=== PATIENT | female | born 1935 | race African-American/Black ===

== ENCOUNTER → 2017-03-01 | Outpatient (CLI) | payer MEDICARE, BC ==
[~2017-03-01] MED LIST: ACET-3161 PO; BIFI4CAP PO; CHOL100026 PO; HUM10VIA6 SQ; INSLAN SQ; LISI-604 PO; LOSA100T3 PO; METF10002 PO; NIFE90TA2 PO; ROSU10TA PO; TRAV2.5D EACHEYE; TRIA1CAP PO; UBID50TA3 PO
== END | disposition home or self-care (01) ==
LOC: PF 13:14
PROVIDERS: ATTEND Specialist
DX: I27.2 Other secondary pulmonary hypertension (principal); J44.9 Chronic obstructive pulmonary disease, unspecified; Z86.79 Personal history of other diseases of the circulatory system
CPT/HCPCS: 94060; 94727; 94729

== ENCOUNTER → 2017-08-30 | Outpatient (CLI) | payer MEDICARE, BC ==
[~2017-08-30] MED LIST changes: -CHOL100026 PO; +CHOL100044 PO
== END | disposition home or self-care (01) ==
LOC: CT 12:14
PROVIDERS: ATTEND Internal Medicine Nephrology
DX: K57.90 Diverticulosis of intestine, part unspecified, without perforation or abscess without bleeding (principal)
CPT/HCPCS: 74176

== ENCOUNTER 2017-12-18 19:21 | Inpatient (IN) | payer MEDICARE, BC ==
[~2017-12-18] VITALS: Ht 167.6 cm; Wt 79.8 kg
[2017-12-18] MEDS ORDERED: ASPIRIN 81MG TABLET PO ONE (20:30)
[2017-12-18] MEDS ORDERED: NITROGLYCERIN OINT 1GM/INCH UDPKT TD ONE (20:30)
[2017-12-18] MEDS ORDERED: NITROGLYCERIN 0.4MG TABLET SL SL PRN (20:30)
[2017-12-18] MEDS ORDERED: FUROSEMIDE 40MG/4ML VIAL IV ONE (20:30)
[2017-12-18 20:46] LABS: HEMATOCRIT. 33.5 % (36.0-48.0); HEMOGLOBIN. 10.8 g/dL (12.0-16.0); MEAN CORPUSCULAR HEMOGLOBIN 24.8 pg (28.0-32.0); MEAN CORPUSCULAR VOLUME 76.9 fL (81.0-99.0); MEAN PLATELET VOLUME 8.2 fl (7.4-10.4); PLATELET 291 x1000/uL (130-400); RED BLOOD CELL COUNT 4.36 mill/uL (4.2-5.4); RED CELL DISTRIBUTION WIDTH 15.4 % (11.6-14.6)
[2017-12-18 20:49] LABS: CHLORIDE 94 mEq/L (98-107)
[2017-12-18 20:51] LABS: INR 1.1; PROTHROMBIN TIME 11.6 sec (9.4-11.6)
[2017-12-18 21:18] LABS: PLATELET ESTIMATE NORMAL
[2017-12-19] MEDS ORDERED: RIVA20TA PO (09:24)
[2017-12-19] MEDS ORDERED: DYZ GT (09:24)
[2017-12-19] MEDS ORDERED: NIFEDIPINE XL 90MG TAB PO SCH (09:45)
[2017-12-19] MEDS ORDERED: ACETAMINOPHEN WITH CODEINE 300/30MG TABLET PO PRN (09:45)
[2017-12-19] MEDS: LOSARTAN POTASSIUM 100 MG TABLET PO SCH (10:10)
[2017-12-19] MEDS: CHOLECALCIFEROL (D3) 1000 UNIT TABLET PO SCH (10:10)
[2017-12-19] MEDS: LISINOPRIL 20MG TABLET PO SCH ×2 (10:10→21:37)
[2017-12-19] MEDS ORDERED: DEXTROSE 50% WATER 50ML SYRINGE IV PRN (10:15)
[2017-12-19] MEDS ORDERED: CLONIDINE 0.1MG TABLET PO PRN (10:15)
[2017-12-19 10:29] VITALS: BP 180/75
[2017-12-19] MEDS ORDERED: LEVOFLOXACIN 500MG PREMIX 100 ML IV SCH ×2 (11:00→13:00)
[2017-12-19] MEDS: BLOOD SUGAR DIAGNOSTIC STRIP TEST SCH ×3 (11:45→21:36)
[2017-12-19 11:59] VITALS: BP 139/60
[2017-12-19] MEDS ORDERED: INSULIN LISPRO 100 UNITS/ML SUBCUT SCH (12:15)
[2017-12-19] MEDS ORDERED: INSULIN LISPRO 100 UNITS/ML SUBCUT NR (12:39)
[2017-12-19] MEDS: INSULIN LISPRO 100 UNITS/ML SUBCUT SCH ×3 (12:57→21:00)
[2017-12-19 16:00] VITALS: BP 133/61
[2017-12-19] MEDS: METFORMIN HCL 500MG TABLET PO SCH (16:54)
[2017-12-19] MEDS: RIVAROXABAN 20 MG TABLET PO SCH (16:54)
[2017-12-19] MEDS ORDERED: MEDICATION NOT ON FORMULARY EA (Travoprost (Travatan Z) 1 DROP) EACHEYE SCH (17:00)
[2017-12-19 17:33] LABS: CLARITY URINE CLEAR (CLEAR); COLOR URINE YELLOW (YELLOW); KETONES URINE NEGATIVE (NEGATIVE); LEUKOCYTE ESTERASE URINE NEGATIVE (NEGATIVE); NITRITE URINE NEGATIVE (NEGATIVE); OCCULT BLOOD URINE NEGATIVE (NEGATIVE); PROTEIN URINE 3+ (NEGATIVE); SPECIFIC GRAVITY URINE 1.014 (1.005-1.030); UROBILINOGEN URINE 0.2 E.U./dL (0.2-1.0)
[2017-12-19 20:00] VITALS: BP 152/60
[2017-12-19] MEDS: LATANOPROST 0.005% OPHTH DROPS 2.5ML BOTHEYE SCH ×2 (21:00→21:36)
[2017-12-19] MEDS: INSULIN GLARGINE UD 100 UNITS/ML SYR SUBCUT SCH (22:50)
[2017-12-20] VITALS: BP 129/63
[2017-12-20] MEDS: BLOOD SUGAR DIAGNOSTIC STRIP TEST SCH ×4 (06:40→21:00)
[2017-12-20] MEDS: INSULIN LISPRO 100 UNITS/ML SUBCUT SCH ×4 (06:40→21:00)
[2017-12-20 07:27] LABS: BASOPHILS % 0.6 % (0.0-2.0); EOSINOPHILS % 4.9 % (0.0-5.0); HEMATOCRIT. 30.3 % (36.0-48.0); HEMOGLOBIN. 10.1 g/dL (12.0-16.0); LYMPHOCYTES % 15.2 % (20.0-50.0); MEAN CORPUSCULAR HEMOGLOBIN 25.2 pg (28.0-32.0); MEAN CORPUSCULAR VOLUME 75.6 fL (81.0-99.0); MEAN PLATELET VOLUME 8.2 fl (7.4-10.4); MONOCYTES % 14.4 % (2.0-8.0); NEUTROPHILS % 64.9 % (40.0-76.0); PLATELET 317 x1000/uL (130-400); RED BLOOD CELL COUNT 4.01 mill/uL (4.2-5.4); RED CELL DISTRIBUTION WIDTH 15.7 % (11.6-14.6)
[2017-12-20 07:56] LABS: CHLORIDE 100 mEq/L (98-107)
[2017-12-20 08:00] VITALS: BP 160/71
[2017-12-20] MEDS ORDERED: UBIDECARENONE 400 MG PO SCH (09:00)
[2017-12-20] MEDS ORDERED: POTASSIUM CHLORIDE 10MEQ TABLET SR PO NR (09:15)
[2017-12-20] MEDS: METFORMIN HCL 500MG TABLET PO SCH ×2 (09:53→17:54)
[2017-12-20] MEDS: LOSARTAN POTASSIUM 100 MG TABLET PO SCH (09:53)
[2017-12-20] MEDS: LISINOPRIL 20MG TABLET PO SCH ×2 (09:53→22:03)
[2017-12-20] MEDS: AMLODIPINE 5MG TABLET PO SCH (09:53)
[2017-12-20] MEDS: CHOLECALCIFEROL (D3) 1000 UNIT TABLET PO SCH (09:53)
[2017-12-20] MEDS: FUROSEMIDE 40MG/4ML VIAL IVP SCH (09:54)
[2017-12-20] MEDS ORDERED: LEVOFLOXACIN 250MG PREMIX 50 ML IV SCH (11:00)
[2017-12-20 12:00] VITALS: BP 149/59
[2017-12-20 17:08] VITALS: BP 152/64
[2017-12-20] MEDS: RIVAROXABAN 20 MG TABLET PO SCH (17:54)
[2017-12-20 20:00] VITALS: BP 170/69
[2017-12-20] MEDS: LATANOPROST 0.005% OPHTH DROPS 2.5ML BOTHEYE SCH (21:00)
[2017-12-20] MEDS: INSULIN GLARGINE UD 100 UNITS/ML SYR SUBCUT SCH (22:04)
[2017-12-21] VITALS: BP 143/67
[2017-12-21 04:00] VITALS: BP 155/65
[2017-12-21] MEDS: BLOOD SUGAR DIAGNOSTIC STRIP TEST SCH ×2 (07:12→11:34)
[2017-12-21] MEDS: INSULIN LISPRO 100 UNITS/ML SUBCUT SCH ×2 (07:13→12:15)
[2017-12-21 07:26] LABS: BASOPHILS % 0.5 % (0.0-2.0); EOSINOPHILS % 5.6 % (0.0-5.0); HEMATOCRIT. 31.5 % (36.0-48.0); HEMOGLOBIN. 10.5 g/dL (12.0-16.0); LYMPHOCYTES % 15.6 % (20.0-50.0); MEAN CORPUSCULAR VOLUME 75.4 fL (81.0-99.0); MEAN PLATELET VOLUME 8.2 fl (7.4-10.4); MONOCYTES % 14.6 % (2.0-8.0); NEUTROPHILS % 63.7 % (40.0-76.0); PLATELET 340 x1000/uL (130-400); RED BLOOD CELL COUNT 4.18 mill/uL (4.2-5.4); RED CELL DISTRIBUTION WIDTH 15.4 % (11.6-14.6)
[2017-12-21 08:00] VITALS: BP 147/60
[2017-12-21 08:18] LABS: CHLORIDE 100 mEq/L (98-107)
[2017-12-21] MEDS: METFORMIN HCL 500MG TABLET PO SCH (08:31)
[2017-12-21] MEDS: FUROSEMIDE 40MG/4ML VIAL IVP SCH (08:31)
[2017-12-21] MEDS: CHOLECALCIFEROL (D3) 1000 UNIT TABLET PO SCH (08:31)
[2017-12-21] MEDS: LOSARTAN POTASSIUM 100 MG TABLET PO SCH (08:31)
[2017-12-21] MEDS: LISINOPRIL 20MG TABLET PO SCH (08:32)
[2017-12-21] MEDS: AMLODIPINE 5MG TABLET PO SCH (08:43)
[2017-12-21] MEDS ORDERED: POTASSIUM CHLORIDE 10MEQ TABLET SR PO SCH (09:00)
[2017-12-21 12:08] VITALS: BP 136/78
== END 2017-12-21 13:20 | disposition home or self-care (01) | DRG 194 ==
LOC: ER 19:21 → ENRESERV 12-19 06:31 → 5WST 12-19 08:20 → EDBEDREQ 12-19 08:20 → EDBEDREQTM 12-19 08:27 → EDBEDREQ 12-19 08:47
PROVIDERS: ADMIT Internal Medicine Nephrology; ATTEND Internal Medicine Nephrology
DX: J18.9 Pneumonia, unspecified organism (principal); E87.1 Hypo-osmolality and hyponatremia; E11.65 Type 2 diabetes mellitus with hyperglycemia; E11.21 Type 2 diabetes mellitus with diabetic nephropathy; I48.1 Persistent atrial fibrillation; E87.8 Other disorders of electrolyte and fluid balance, not elsewhere classified; E88.09 Other disorders of plasma-protein metabolism, not elsewhere classified; I27.20 Pulmonary hypertension, unspecified; I49.5 Sick sinus syndrome; R80.9 Proteinuria, unspecified; E78.5 Hyperlipidemia, unspecified; I35.1 Nonrheumatic aortic (valve) insufficiency; I44.7 Left bundle-branch block, unspecified; J06.9 Acute upper respiratory infection, unspecified; Z79.01 Long term (current) use of anticoagulants; Z79.899 Other long term (current) drug therapy; Z87.891 Personal history of nicotine dependence; Z95.0 Presence of cardiac pacemaker; Z88.0 Allergy status to penicillin; Z79.4 Long term (current) use of insulin; I10 Essential (primary) hypertension
CPT/HCPCS: 36415; 70486; 71045; 80048; 80053; 81003; 82962; 83520; 83880; 84484; 85025; 85610; 85651; 86140; 86256; 93005; 96374; 99285; J1815; J1940; J1956; J7050

== ENCOUNTER 2018-10-12 18:44 | Inpatient (IN) | payer MEDICARE, BC ==
[~2018-10-12] VITALS: Ht 167.6 cm; Wt 77.6 kg
[~2018-10-12 18:44] MED LIST changes: +DYZ GT; +METF-416 PO; -METF10002 PO; +RIVA20TA PO
[2018-10-12 20:06] LABS: CLARITY URINE CLEAR (CLEAR); COLOR URINE YELLOW (YELLOW); KETONES URINE NEGATIVE (NEGATIVE); LEUKOCYTE ESTERASE URINE NEGATIVE (NEGATIVE); NITRITE URINE NEGATIVE (NEGATIVE); OCCULT BLOOD URINE NEGATIVE (NEGATIVE); PH URINE 6.5 (4.5-8.0); PROTEIN URINE 1+ (NEGATIVE); SPECIFIC GRAVITY URINE 1.008 (1.005-1.030); UROBILINOGEN URINE 0.2 E.U./dL (0.2-1.0)
[2018-10-12 20:22] LABS: CHLORIDE 100 mEq/L (98-107)
[2018-10-12 20:24] LABS: INR 1.1; PROTHROMBIN TIME 10.7 sec (9.1-11.1)
[2018-10-12 20:31] LABS: BASOPHILS % 0.4 % (0.0-2.0); EOSINOPHILS % 0.8 % (0.0-5.0); HEMATOCRIT. 36.1 % (36.0-48.0); HEMOGLOBIN. 11.9 g/dL (12.0-16.0); MEAN CORPUSCULAR HEMOGLOBIN 26.4 pg (28.0-32.0); MEAN CORPUSCULAR VOLUME 79.8 fL (81.0-99.0); MEAN PLATELET VOLUME 8.8 fl (7.4-10.4); MONOCYTES % 11.8 % (2.0-8.0); PLATELET 271 x1000/uL (130-400); RED BLOOD CELL COUNT 4.53 mill/uL (4.2-5.4); RED CELL DISTRIBUTION WIDTH 14.7 % (11.6-14.6)
[2018-10-12] MEDS ORDERED: METRONIDAZOLE 500 MG PREMIX 100 ML IV ONE (21:45)
[2018-10-12] MEDS ORDERED: SODIUM CHLORIDE 0.9% 1,000 ML IV ONE (21:45)
[2018-10-12] MEDS ORDERED: LEVOFLOXACIN 750MG PREMIX 150 ML IV ONE (21:45)
[2018-10-12] MEDS ORDERED: LISINOPRIL 20MG TABLET PO ONE (22:15)
[2018-10-12] MEDS ORDERED: NIFEDIPINE XL 90MG TAB PO ONE (22:15)
[2018-10-13 00:39] VITALS: BP 152/76
[2018-10-13] MEDS ORDERED: LEVOFLOXACIN 500MG PREMIX 100 ML IV SCH (01:30)
[2018-10-13] MEDS ORDERED: ACETAMINOPHEN WITH CODEINE PO SCH (01:30)
[2018-10-13] MEDS ORDERED: NIFEDIPINE XL 90MG TAB PO SCH (02:00)
[2018-10-13] MEDS: DEXT 5%/0.45% NACL 1000ML 1,000 ML IV SCH ×2 (02:56→14:51)
[2018-10-13] MEDS: BLOOD SUGAR DIAGNOSTIC STRIP TEST SCH ×4 (06:57→21:00)
[2018-10-13] MEDS: INSULIN LISPRO (LOW DOSE) 100 UNITS/ML SUBCUT SCH ×3 (07:14→16:50)
[2018-10-13] MEDS ORDERED: INSULIN LISPRO 100 UNITS/ML SUBCUT SCH (07:20)
[2018-10-13] MEDS ORDERED: METFORMIN HCL 500MG TABLET PO SCH (07:50)
[2018-10-13 07:51] LABS: BASOPHILS % 0.5 % (0.0-2.0); EOSINOPHILS % 1.6 % (0.0-5.0); HEMATOCRIT. 34.4 % (36.0-48.0); HEMOGLOBIN. 11.3 g/dL (12.0-16.0); LYMPHOCYTES % 15.3 % (20.0-50.0); MEAN CORPUSCULAR HEMOGLOBIN 26.1 pg (28.0-32.0); MEAN CORPUSCULAR VOLUME 79.6 fL (81.0-99.0); MEAN PLATELET VOLUME 8.4 fl (7.4-10.4); MONOCYTES % 14.8 % (2.0-8.0); NEUTROPHILS % 67.8 % (40.0-76.0); PLATELET 262 x1000/uL (130-400); RED BLOOD CELL COUNT 4.32 mill/uL (4.2-5.4); RED CELL DISTRIBUTION WIDTH 15.1 % (11.6-14.6)
[2018-10-13 08:00] VITALS: BP 151/63
[2018-10-13] MEDS: TRIAMTERENE/HYDROCHLOROTHIAZIDE 37.5/25MG CAPSULE PO SCH (08:47)
[2018-10-13] MEDS: CHOLECALCIFEROL (D3) 1000 UNIT TABLET PO SCH (08:47)
[2018-10-13] MEDS: LISINOPRIL 20MG TABLET PO SCH ×2 (08:47→22:05)
[2018-10-13] MEDS: METFORMIN HCL 500MG TABLET PO SCH ×2 (08:48→16:50)
[2018-10-13] MEDS ORDERED: UBIDECARENONE 400 MG PO SCH (09:00)
[2018-10-13] MEDS ORDERED: TRIAMTERENE/HYDROCHLOROTHIAZIDE 37.5/25MG CAPSULE PO SCH (09:00)
[2018-10-13] MEDS ORDERED: MEDICATION NOT ON FORMULARY EA (Losartan Potassium (Cozaar) 1 TAB) PO SCH (09:00)
[2018-10-13] MEDS ORDERED: MEDICATION NOT ON FORMULARY EA (Rosuvastatin Calcium (Crestor) 5 MG) PO SCH (09:00)
[2018-10-13] MEDS ORDERED: MEDICATION NOT ON FORMULARY EA (Lisinopril 1 TAB) PO SCH (09:00)
[2018-10-13] MEDS ORDERED: INS NPH/REG HM 70-30 100 UNITS/ML 10ML VIAL (HUMULIN 70-30) SUBCUT SCH (09:00)
[2018-10-13] MEDS ORDERED: NIFEDIPINE PO SCH (09:00)
[2018-10-13] MEDS ORDERED: MEDICATION NOT ON FORMULARY EA (Rivaroxaban (Xarelto) 1 TAB) PO SCH (09:00)
[2018-10-13 12:00] VITALS: BP 132/62
[2018-10-13] MEDS ORDERED: CLONIDINE 0.2MG TABLET PO PRN (12:15)
[2018-10-13] MEDS ORDERED: CLONIDINE 0.1MG TABLET PO PRN (12:15)
[2018-10-13] MEDS: METRONIDAZOLE 500 MG PREMIX 100 ML IV SCH ×2 (13:14→22:02)
[2018-10-13 16:00] VITALS: BP 156/69
[2018-10-13] MEDS ORDERED: RIVAROXABAN 15 MG TABLET PO SCH (17:00)
[2018-10-13] MEDS ORDERED: RIVAROXABAN 10 MG TABLET PO SCH ×2 (17:00→18:00)
[2018-10-13] MEDS ORDERED: MEDICATION NOT ON FORMULARY EA (Travoprost (Travatan Z) 1 DROP) EACHEYE SCH (17:00)
[2018-10-13] MEDS: RIVAROXABAN 20 MG TABLET PO SCH (17:42)
[2018-10-13 20:00] VITALS: BP 162/73
[2018-10-13] MEDS ORDERED: ATORVASTATIN CALCIUM 10MG TABLET PO SCH (21:00)
[2018-10-13] MEDS ORDERED: INSULIN GLARGINE HUM REC ANLOG U SQ SCH (21:00)
[2018-10-13] MEDS: LATANOPROST 0.005% OPHTH DROPS 2.5ML EACHEYE SCH (21:00)
[2018-10-13] MEDS: INSULIN GLARGINE UD 100 UNITS/ML SYR SUBCUT SCH (22:00)
[2018-10-13] MEDS ORDERED: LEVOFLOXACIN 250MG PREMIX 50 ML IV SCH (22:00)
[2018-10-13] MEDS: NIFEDIPINE XL 90MG TAB PO SCH (22:03)
[2018-10-13] MEDS: UBIDECARENONE/VITAMIN E 50MG PO SCH (22:05)
[2018-10-14] VITALS (7 sets, daily range): BP systolic 143–165; BP diastolic 59–104
[2018-10-14] MEDS: LEVOFLOXACIN 500MG PREMIX 100 ML IV SCH ×2 (00:13→20:57)
[2018-10-14] MEDS: METRONIDAZOLE 500 MG PREMIX 100 ML IV SCH ×3 (05:58→23:43)
[2018-10-14] MEDS: DEXT 5%/0.45% NACL 1000ML 1,000 ML IV SCH ×2 (05:58→17:49)
[2018-10-14 06:39] LABS: CHLORIDE 103 mEq/L (98-107)
[2018-10-14 06:43] LABS: BASOPHILS % 0.5 % (0.0-2.0); EOSINOPHILS % 1.6 % (0.0-5.0); HEMATOCRIT. 35.2 % (36.0-48.0); HEMOGLOBIN. 11.7 g/dL (12.0-16.0); LYMPHOCYTES % 13.8 % (20.0-50.0); MEAN CORPUSCULAR HEMOGLOBIN 26.5 pg (28.0-32.0); MEAN CORPUSCULAR VOLUME 79.7 fL (81.0-99.0); MEAN PLATELET VOLUME 8.4 fl (7.4-10.4); MONOCYTES % 14.7 % (2.0-8.0); NEUTROPHILS % 69.4 % (40.0-76.0); PLATELET 270 x1000/uL (130-400); RED BLOOD CELL COUNT 4.42 mill/uL (4.2-5.4); RED CELL DISTRIBUTION WIDTH 14.8 % (11.6-14.6)
[2018-10-14 06:44] LABS: FERRITIN 81 ng/mL (10-291)
[2018-10-14 06:52] LABS: TOTAL IRON BINDING CAPACITY 292 ug/dL (250-450)
[2018-10-14] MEDS: BLOOD SUGAR DIAGNOSTIC STRIP TEST SCH ×4 (07:20→21:31)
[2018-10-14 08:18] LABS: FOLIC ACID (FOLATE) SERUM >20 ng/mL ng/mL (>5.38)
[2018-10-14 08:29] LABS: VITAMIN B12 SERUM >2000 pg/mL pg/mL (211-911)
[2018-10-14] MEDS: UBIDECARENONE/VITAMIN E 50MG PO SCH (08:43)
[2018-10-14] MEDS: PANTOPRAZOLE SODIUM 40 MG/VIAL IV SCH (08:45)
[2018-10-14] MEDS: INSULIN LISPRO (LOW DOSE) 100 UNITS/ML SUBCUT SCH ×4 (08:45→21:29)
[2018-10-14] MEDS: TRIAMTERENE/HYDROCHLOROTHIAZIDE 37.5/25MG CAPSULE PO SCH (08:45)
[2018-10-14] MEDS: LOSARTAN POTASSIUM 100 MG TABLET PO SCH (08:46)
[2018-10-14] MEDS: LISINOPRIL 20MG TABLET PO SCH ×2 (08:46→20:57)
[2018-10-14] MEDS: METFORMIN HCL 500MG TABLET PO SCH ×2 (08:46→17:16)
[2018-10-14] MEDS: CHOLECALCIFEROL (D3) 1000 UNIT TABLET PO SCH (08:46)
[2018-10-14] MEDS ORDERED: MAGNESIUM 2 G PREMIX 50 ML IV NR (13:00)
[2018-10-14] MEDS: RIVAROXABAN 20 MG TABLET PO SCH (16:36)
[2018-10-14] MEDS: NIFEDIPINE XL 90MG TAB PO SCH (20:56)
[2018-10-14] MEDS: LATANOPROST 0.005% OPHTH DROPS 2.5ML EACHEYE SCH (20:58)
[2018-10-14] MEDS: INSULIN GLARGINE UD 100 UNITS/ML SYR SUBCUT SCH (21:29)
[2018-10-15] VITALS (7 sets, daily range): BP systolic 123–172; BP diastolic 56–76
[2018-10-15] MEDS: DEXT 5%/0.45% NACL 1000ML 1,000 ML IV SCH ×2 (01:03→21:06)
[2018-10-15] MEDS: METRONIDAZOLE 500 MG PREMIX 100 ML IV SCH ×3 (06:55→22:40)
[2018-10-15] MEDS: BLOOD SUGAR DIAGNOSTIC STRIP TEST SCH ×4 (07:41→21:06)
[2018-10-15] MEDS: UBIDECARENONE/VITAMIN E 50MG PO SCH (09:00)
[2018-10-15] MEDS: METFORMIN HCL 500MG TABLET PO SCH ×2 (09:36→18:32)
[2018-10-15] MEDS: LOSARTAN POTASSIUM 100 MG TABLET PO SCH (09:37)
[2018-10-15] MEDS: PANTOPRAZOLE SODIUM 40 MG/VIAL IV SCH (09:37)
[2018-10-15] MEDS: TRIAMTERENE/HYDROCHLOROTHIAZIDE 37.5/25MG CAPSULE PO SCH (09:37)
[2018-10-15] MEDS: CHOLECALCIFEROL (D3) 1000 UNIT TABLET PO SCH (09:38)
[2018-10-15] MEDS: LISINOPRIL 20MG TABLET PO SCH ×2 (09:39→21:05)
[2018-10-15] MEDS: INSULIN LISPRO (LOW DOSE) 100 UNITS/ML SUBCUT SCH ×2 (12:20→17:20)
[2018-10-15] MEDS: FERROUS SULFATE 325MG TABLET PO SCH (18:31)
[2018-10-15] MEDS: RIVAROXABAN 20 MG TABLET PO SCH (18:32)
[2018-10-15] MEDS: LATANOPROST 0.005% OPHTH DROPS 2.5ML EACHEYE SCH (21:00)
[2018-10-15] MEDS: LEVOFLOXACIN 500MG PREMIX 100 ML IV SCH (21:04)
[2018-10-15] MEDS: INSULIN GLARGINE UD 100 UNITS/ML SYR SUBCUT SCH (22:51)
[2018-10-16] VITALS: BP 156/63
[2018-10-16] MEDS: NIFEDIPINE XL 90MG TAB PO SCH (00:03)
[2018-10-16 04:00] VITALS: BP 148/57
[2018-10-16] MEDS: METRONIDAZOLE 500 MG PREMIX 100 ML IV SCH (06:18)
[2018-10-16] MEDS: BLOOD SUGAR DIAGNOSTIC STRIP TEST SCH (06:30)
[2018-10-16] MEDS: INSULIN LISPRO (LOW DOSE) 100 UNITS/ML SUBCUT SCH (06:30)
[2018-10-16 07:43] LABS: BASOPHILS % 0.4 % (0.0-2.0); EOSINOPHILS % 2.4 % (0.0-5.0); HEMATOCRIT. 34.4 % (36.0-48.0); HEMOGLOBIN. 11.4 g/dL (12.0-16.0); MEAN CORPUSCULAR HEMOGLOBIN 26.3 pg (28.0-32.0); MEAN CORPUSCULAR VOLUME 79.7 fL (81.0-99.0); MEAN PLATELET VOLUME 8.1 fl (7.4-10.4); MONOCYTES % 14.8 % (2.0-8.0); NEUTROPHILS % 68.4 % (40.0-76.0); PLATELET 247 x1000/uL (130-400); RED BLOOD CELL COUNT 4.32 mill/uL (4.2-5.4); RED CELL DISTRIBUTION WIDTH 14.9 % (11.6-14.6)
[2018-10-16 08:06] LABS: CHLORIDE 106 mEq/L (98-107)
[2018-10-16] MEDS: PANTOPRAZOLE SODIUM 40 MG/VIAL IV SCH (09:08)
[2018-10-16] MEDS: CHOLECALCIFEROL (D3) 1000 UNIT TABLET PO SCH (09:09)
[2018-10-16] MEDS: LOSARTAN POTASSIUM 100 MG TABLET PO SCH (09:09)
[2018-10-16] MEDS: TRIAMTERENE/HYDROCHLOROTHIAZIDE 37.5/25MG CAPSULE PO SCH (09:10)
[2018-10-16] MEDS: METFORMIN HCL 500MG TABLET PO SCH (09:10)
[2018-10-16] MEDS: FERROUS SULFATE 325MG TABLET PO SCH (09:11)
[2018-10-16] MEDS: LISINOPRIL 20MG TABLET PO SCH (09:38)
[2018-10-16] MEDS ORDERED: POTASSIUM CHLORIDE 20MEQ/PACKET PO NR (10:30)
[2018-10-16 12:00] VITALS: BP 169/104
[2018-10-16 14:49] VITALS: BP_SYST 145; BP_DIAS 35; BP_DIAS 55
[2018-10-16 16:00] VITALS: BP 145/65
[2018-10-16 16:28] LABS: CHLORIDE 104 mEq/L (98-107)
[2018-10-17] MEDS ORDERED: METRONIDAZOLE 500MG TABLET PO SCH (06:00)
[2018-10-17] MEDS ORDERED: LEVOFLOXACIN 500MG TABLET PO SCH (21:00)
== END 2018-10-16 16:35 | disposition home or self-care (01) | DRG 392 ==
LOC: ER 18:44 → 6EST 21:50 → EDBEDREQ 21:53 → EDBEDREQSVC 21:53 → EDBEDREQTM 21:53 → ENRESERV 22:23
PROVIDERS: ADMIT Internal Medicine Nephrology; ATTEND Internal Medicine Nephrology
DX: K57.32 Diverticulitis of large intestine without perforation or abscess without bleeding (principal); E87.1 Hypo-osmolality and hyponatremia; I50.32 Chronic diastolic (congestive) heart failure; I48.2 Chronic atrial fibrillation; I49.5 Sick sinus syndrome; I11.0 Hypertensive heart disease with heart failure; E11.51 Type 2 diabetes mellitus with diabetic peripheral angiopathy without gangrene; I35.1 Nonrheumatic aortic (valve) insufficiency; I27.20 Pulmonary hypertension, unspecified; K57.90 Diverticulosis of intestine, part unspecified, without perforation or abscess without bleeding; D50.9 Iron deficiency anemia, unspecified; K82.4 Cholesterolosis of gallbladder; E11.21 Type 2 diabetes mellitus with diabetic nephropathy; R07.89 Other chest pain; K64.9 Unspecified hemorrhoids; Z79.01 Long term (current) use of anticoagulants; Z95.0 Presence of cardiac pacemaker; Z86.010 Personal history of colon polyps; Z88.0 Allergy status to penicillin; Z79.4 Long term (current) use of insulin; Z79.84 Long term (current) use of oral hypoglycemic drugs; Z79.899 Other long term (current) drug therapy; Z79.1 Long term (current) use of non-steroidal anti-inflammatories (NSAID)
CPT/HCPCS: 36415; 71045; 74176; 76700; 80048; 82607; 82728; 82746; 82962; 83540; 83550; 83735; 83880; 84443; 84484; 93005; 96365; 99285; C9113; J1815; J1956; J3475; J3490; J7030; J7070

== ENCOUNTER → 2018-12-09 | Outpatient (CLI) | payer BC | END | disposition home or self-care (01) | LOC: NM 07:27 | DX: K81.9 Cholecystitis, unspecified (principal); K57.40 Diverticulitis of both small and large intestine with perforation and abscess without bleeding; E08.00 Diabetes mellitus due to underlying condition with hyperosmolarity without nonketotic hyperglycemic-hyperosmolar coma (NKHHC); I48.0 Paroxysmal atrial fibrillation | CPT/HCPCS: 78227; A9537 ==

== ENCOUNTER 2020-09-22 13:44 | Emergency (ER) | payer BC ==
[~2020-09-22] VITALS: Ht 167.6 cm; Wt 75.0 kg
[~2020-09-22 13:44] MED LIST changes: -BIFI4CAP PO; +EVOL140P3 SQ; -HUM10VIA6 SQ; -LISI-604 PO; -ROSU10TA PO
[2020-09-22 15:25] LABS: HEMATOCRIT. 31.6 % (36.0-48.0); HEMOGLOBIN. 10.5 g/dL (12.0-16.0); MEAN CORPUSCULAR HEMOGLOBIN 26.9 pg (28.0-32.0); MEAN PLATELET VOLUME 8.3 fl (7.4-10.4); PLATELET 254 x1000/uL (130-400); RED CELL DISTRIBUTION WIDTH 15.4 % (11.6-14.6)
[2020-09-22 15:33] LABS: CHLORIDE 103 mEq/L (98-107)
[2020-09-22 16:43] LABS: PLATELET ESTIMATE NORMAL
[2020-09-22 18:30] VITALS: BP 145/75
== END 2020-09-22 19:34 | disposition home or self-care (01) ==
LOC: ER 13:44 → CANBEDREQ 09-23 16:58
DX: R51.9 Headache, unspecified (principal); R06.00 Dyspnea, unspecified; I48.91 Unspecified atrial fibrillation; I10 Essential (primary) hypertension; E11.9 Type 2 diabetes mellitus without complications; Z87.828 Personal history of other (healed) physical injury and trauma; Z95.0 Presence of cardiac pacemaker; Z79.01 Long term (current) use of anticoagulants; Z88.0 Allergy status to penicillin
CPT/HCPCS: 36415; 71045; 80048; 84484; 85025; 93005; 99285

== ENCOUNTER 2020-09-25 07:21 | Inpatient (IN) | payer BC ==
[~2020-09-25] VITALS: Ht 165.1 cm; Wt 75.5 kg
[2020-09-25 08:38] LABS: CHLORIDE 106 mEq/L (98-107)
[2020-09-25 08:51] LABS: BASOPHILS % 0.7 % (0.0-2.0); EOSINOPHILS % 2.1 % (0.0-5.0); HEMATOCRIT. 32.7 % (36.0-48.0); HEMOGLOBIN. 10.9 g/dL (12.0-16.0); LYMPHOCYTES % 9.3 % (20.0-50.0); MEAN CORPUSCULAR HEMOGLOBIN 26.7 pg (28.0-32.0); MEAN CORPUSCULAR VOLUME 80.4 fL (81.0-99.0); MEAN PLATELET VOLUME 8.3 fl (7.4-10.4); MONOCYTES % 11.8 % (2.0-8.0); NEUTROPHILS % 76.1 % (40.0-76.0); PLATELET 273 x1000/uL (130-400); RED BLOOD CELL COUNT 4.07 mill/uL (4.2-5.4); RED CELL DISTRIBUTION WIDTH 15.4 % (11.6-14.6)
[2020-09-25] MEDS ORDERED: FUROSEMIDE 20MG TABLET PO ONE (09:15)
[2020-09-25] MEDS ORDERED: ASPIRIN 81MG TABLET PO ONE (09:15)
[2020-09-25 14:45] VITALS: BP 148/54
[2020-09-25] MEDS ORDERED: NIFE10CA PO (16:04)
[2020-09-25] MEDS ORDERED: FISH PO (16:04)
[2020-09-25] MEDS ORDERED: EVOL140P3 SQ (16:04)
[2020-09-25 16:46] VITALS: BP 148/54
[2020-09-25] MEDS ORDERED: ONDANSETRON HCL 4MG/2ML INJ IV PRN (17:00)
[2020-09-25] MEDS ORDERED: DIPHENHYDRAMINE 50MG/ML VIAL IV PRN (17:00)
[2020-09-25] MEDS ORDERED: IPRATROPIUM/ALBUTEROL 0.5-3(2.5)MG/3ML NEB HHN PRN (17:00)
[2020-09-25] MEDS ORDERED: DEXTROSE 50% WATER 50ML SYRINGE IV PRN (17:00)
[2020-09-25] MEDS ORDERED: CLONIDINE 0.1MG TABLET PO PRN (17:00)
[2020-09-25] MEDS ORDERED: ACETAMINOPHEN 325MG TABLET PO PRN ×2 (17:00)
[2020-09-25] MEDS ORDERED: MAGNESIUM/ALUMINUM HYDROXIDE/SIMETHICONE 30ML UDC PO PRN (17:00)
[2020-09-25] MEDS ORDERED: RIVAROXABAN 10 MG TABLET PO SCH (17:00)
[2020-09-25] MEDS: INSULIN LISPRO 100 UNITS/ML SUBCUT SCH ×2 (17:50→21:40)
[2020-09-25] MEDS: RIVAROXABAN 15 MG TABLET PO SCH (18:07)
[2020-09-25] MEDS: BLOOD SUGAR DIAGNOSTIC STRIP TEST SCH ×2 (18:07→21:36)
[2020-09-25] MEDS: METFORMIN HCL 500MG TABLET PO SCH (18:08)
[2020-09-25 20:00] VITALS: BP 152/50
[2020-09-25] MEDS ORDERED: ZOLPIDEM TARTRATE 5MG TABLET PO PRN (21:00)
[2020-09-25] MEDS: INSULIN GLARGINE UD 100 UNITS/ML SYR SUBCUT SCH (21:40)
[2020-09-25] MEDS: SODIUM CHLORIDE 0.9% INJ 3ML FLUSH IVF SCH (21:40)
[2020-09-25] MEDS: NIFEDIPINE XL 90MG TAB PO SCH (21:53)
[2020-09-26] VITALS: BP 144/53
[2020-09-26 04:00] VITALS: BP 125/78
[2020-09-26] MEDS: SODIUM CHLORIDE 0.9% INJ 3ML FLUSH IVF SCH ×3 (06:14→21:50)
[2020-09-26 06:39] LABS: HEMOGLOBIN. 10.6 g/dL (12.0-16.0); MEAN CORPUSCULAR HEMOGLOBIN 26.7 pg (28.0-32.0); MEAN CORPUSCULAR VOLUME 80.5 fL (81.0-99.0); MEAN PLATELET VOLUME 8.3 fl (7.4-10.4); PLATELET 274 x1000/uL (130-400); RED BLOOD CELL COUNT 3.97 mill/uL (4.2-5.4); RED CELL DISTRIBUTION WIDTH 15.3 % (11.6-14.6)
[2020-09-26] MEDS: BLOOD SUGAR DIAGNOSTIC STRIP TEST SCH ×4 (07:00→21:44)
[2020-09-26] MEDS: INSULIN LISPRO 100 UNITS/ML SUBCUT SCH ×4 (07:43→21:00)
[2020-09-26] MEDS: METFORMIN HCL 500MG TABLET PO SCH ×2 (07:45→17:36)
[2020-09-26 07:50] LABS: CHLORIDE 104 mEq/L (98-107)
[2020-09-26 08:00] VITALS: BP 147/59
[2020-09-26] MEDS: POTASSIUM CHLORIDE 20MEQ TABLET SR PO SCH (08:53)
[2020-09-26] MEDS: LOSARTAN POTASSIUM 100 MG TABLET PO SCH (08:54)
[2020-09-26] MEDS: CHOLECALCIFEROL (D3) 1000 UNIT TABLET PO SCH (08:54)
[2020-09-26] MEDS ORDERED: FUROSEMIDE 20MG/2ML VIAL IVP SCH (09:00)
[2020-09-26 09:24] LABS: PLATELET ESTIMATE NORMAL
[2020-09-26 12:00] VITALS: BP 119/62
[2020-09-26] MEDS ORDERED: LORAZEPAM 2MG/ML CPJ IV SCH (12:00)
[2020-09-26] MEDS ORDERED: PNEUMOCOCCAL 23-VAL P-SAC VAC 0.5 ML IM ONE (14:00)
[2020-09-26] MEDS ORDERED: INFLUENZA VACCINE 05/PF 0.5 ML VIAL IM ONE (14:00)
[2020-09-26 16:00] VITALS: BP 149/58
[2020-09-26] MEDS: RIVAROXABAN 15 MG TABLET PO SCH (17:36)
[2020-09-26 20:00] VITALS: BP 160/78
[2020-09-26] MEDS: NIFEDIPINE XL 90MG TAB PO SCH (21:50)
[2020-09-26] MEDS: INSULIN GLARGINE UD 100 UNITS/ML SYR SUBCUT SCH (21:51)
[2020-09-27] VITALS: BP 153/73
[2020-09-27 04:00] VITALS: BP 142/67
[2020-09-27] MEDS: SODIUM CHLORIDE 0.9% INJ 3ML FLUSH IVF SCH (05:38)
[2020-09-27] MEDS: BLOOD SUGAR DIAGNOSTIC STRIP TEST SCH ×2 (06:20→13:14)
[2020-09-27 06:32] LABS: BASOPHILS % 0.5 % (0.0-2.0); EOSINOPHILS % 2.8 % (0.0-5.0); HEMATOCRIT. 31.1 % (36.0-48.0); HEMOGLOBIN. 10.2 g/dL (12.0-16.0); LYMPHOCYTES % 11.9 % (20.0-50.0); MEAN CORPUSCULAR HEMOGLOBIN 26.5 pg (28.0-32.0); MEAN CORPUSCULAR VOLUME 80.9 fL (81.0-99.0); MEAN PLATELET VOLUME 8.5 fl (7.4-10.4); NEUTROPHILS % 70.8 % (40.0-76.0); PLATELET 258 x1000/uL (130-400); RED BLOOD CELL COUNT 3.84 mill/uL (4.2-5.4); RED CELL DISTRIBUTION WIDTH 15.4 % (11.6-14.6)
[2020-09-27 06:40] LABS: CHLORIDE 106 mEq/L (98-107)
[2020-09-27] MEDS: INSULIN LISPRO 100 UNITS/ML SUBCUT SCH ×2 (07:50→12:50)
[2020-09-27 08:00] VITALS: BP 134/56
[2020-09-27] MEDS ORDERED: POTASSIUM CHLORIDE 20MEQ TABLET SR PO NR (09:00)
[2020-09-27] MEDS ORDERED: FUROSEMIDE 40MG/4ML VIAL IVP SCH (09:00)
[2020-09-27] MEDS: LOSARTAN POTASSIUM 100 MG TABLET PO SCH (09:07)
[2020-09-27] MEDS: METFORMIN HCL 500MG TABLET PO SCH (09:07)
[2020-09-27] MEDS: POTASSIUM CHLORIDE 20MEQ TABLET SR PO SCH (09:08)
[2020-09-27] MEDS: CHOLECALCIFEROL (D3) 1000 UNIT TABLET PO SCH (09:08)
[2020-09-27 12:00] VITALS: BP 144/70
[2020-09-27 14:32] VITALS: BP 133/58
== END 2020-09-27 16:09 | disposition home or self-care (01) | DRG 682 ==
LOC: ER 07:21 → 6WST 10:38 → EDBEDREQTM 10:40 → EDBEDREQ 10:40 → ENRESERV 14:03
PROVIDERS: ADMIT Internal Medicine; ATTEND Internal Medicine
DX: N17.9 Acute kidney failure, unspecified (principal); I50.33 Acute on chronic diastolic (congestive) heart failure; I48.20 Chronic atrial fibrillation, unspecified; J84.9 Interstitial pulmonary disease, unspecified; I11.0 Hypertensive heart disease with heart failure; E11.9 Type 2 diabetes mellitus without complications; F41.9 Anxiety disorder, unspecified; I49.5 Sick sinus syndrome; K57.90 Diverticulosis of intestine, part unspecified, without perforation or abscess without bleeding; Z79.01 Long term (current) use of anticoagulants; Z82.49 Family history of ischemic heart disease and other diseases of the circulatory system; Z87.891 Personal history of nicotine dependence; Z88.0 Allergy status to penicillin; Z79.4 Long term (current) use of insulin; Z79.1 Long term (current) use of non-steroidal anti-inflammatories (NSAID); Z79.899 Other long term (current) drug therapy; Z95.0 Presence of cardiac pacemaker
CPT/HCPCS: 36415; 70551; 71045; 80048; 80053; 82962; 83036; 83735; 83880; 84484; 85025; 93005; 99285; J1815; J1940; J2060

== ENCOUNTER 2021-05-11 18:17 | Inpatient (IN) | payer BC ==
[~2021-05-11] VITALS: Ht 170.2 cm; Wt 68.7 kg
[~2021-05-11 18:17] MED LIST changes: -DYZ GT; +FISH PO; +NIFE10CA PO; -TRAV2.5D EACHEYE; +TRAV2.5D9 EACHEYE
[2021-05-11] MEDS ORDERED: ONDANSETRON HCL 4MG/2ML INJ IV STA (21:02)
[2021-05-11] MEDS ORDERED: MORPHINE SULFATE 4 MG/ML CPJ (NOT FOR IM USE) IV STA (21:02)
[2021-05-11] MEDS ORDERED: SODIUM CHLORIDE 0.9% 500 ML IV ONE (21:15)
[2021-05-11 22:01] LABS: CLARITY URINE CLEAR (CLEAR); COLOR URINE YELLOW (YELLOW); KETONES URINE NEGATIVE (NEGATIVE); LEUKOCYTE ESTERASE URINE NEGATIVE (NEGATIVE); NITRITE URINE NEGATIVE (NEGATIVE); OCCULT BLOOD URINE NEGATIVE (NEGATIVE); PH URINE 7.5 (4.5-8.0); PROTEIN URINE 1+ (NEGATIVE); SPECIFIC GRAVITY URINE 1.006 (1.005-1.030); UROBILINOGEN URINE 0.2 E.U./dL (0.2-1.0)
[2021-05-11 22:03] LABS: CHLORIDE 102 mEq/L (98-107); HEMATOCRIT. 38.8 % (36.0-48.0); MEAN CORPUSCULAR HEMOGLOBIN 27.3 pg (28.0-32.0); MEAN CORPUSCULAR VOLUME 81.2 fL (81.0-99.0); MEAN PLATELET VOLUME 8.6 fl (7.4-10.4); PLATELET 289 x1000/uL (130-400); RED BLOOD CELL COUNT 4.78 mill/uL (4.2-5.4); RED CELL DISTRIBUTION WIDTH 14.9 % (11.6-14.6)
[2021-05-11 22:07] LABS: INR 1.1; PROTHROMBIN TIME 11.7 sec (9.6-11.0)
[2021-05-11 22:17] LABS: *AMPHETAMINES SCREEN URINE NEGATIVE (NEGATIVE)
[2021-05-11 22:18] LABS: *BARBITURATES SCREEN URINE NEGATIVE (NEGATIVE); *BENZODIAZEPINES SCREEN URINE NEGATIVE (NEGATIVE); *COCAINE SCREEN URINE NEGATIVE (NEGATIVE); METHADONE URINE SCREEN NEGATIVE (NEGATIVE); OPIATES URINE SCREEN NEGATIVE (NEGATIVE); PHENCYCLIDINE URINE SCREEN NEGATIVE (NEGATIVE)
[2021-05-11 22:19] LABS: CANNABINOID URINE SCREEN NEGATIVE (NEGATIVE)
[2021-05-11 22:21] LABS: PLATELET ESTIMATE NORMAL
[2021-05-12] MEDS ORDERED: METRONIDAZOLE 500 MG PREMIX 100 ML IV ONE (00:15)
[2021-05-12] MEDS ORDERED: LEVOFLOXACIN 500MG PREMIX 100 ML IV ONE (00:15)
[2021-05-12] MEDS ORDERED: MORPHINE SULFATE 2 MG/ML CPJ (NOT FOR IM USE) IV PRN (09:15)
[2021-05-12] MEDS ORDERED: NALOXONE HCL 0.4MG/ML VIAL IV PRN (09:30)
[2021-05-12 10:33] LABS: HEMATOCRIT. 38.2 % (36.0-48.0); HEMOGLOBIN. 12.7 g/dL (12.0-16.0); MEAN CORPUSCULAR HEMOGLOBIN 27.7 pg (28.0-32.0); MEAN CORPUSCULAR VOLUME 83.5 fL (81.0-99.0); MEAN PLATELET VOLUME 8.3 fl (7.4-10.4); PLATELET 257 x1000/uL (130-400); RED BLOOD CELL COUNT 4.58 mill/uL (4.2-5.4); RED CELL DISTRIBUTION WIDTH 15.5 % (11.6-14.6)
[2021-05-12 10:34] LABS: CHLORIDE 106 mEq/L (98-107)
[2021-05-12 12:00] LABS: PLATELET ESTIMATE NORMAL
[2021-05-12 12:30] VITALS: BP 167/75
[2021-05-12] MEDS ORDERED: FURO-151 PO (12:59)
[2021-05-12] MEDS ORDERED: SPIR25TA PO (12:59)
[2021-05-12] MEDS: SODIUM CHLORIDE 0.45% 1,000 ML IV SCH (16:45)
[2021-05-12] MEDS ORDERED: ACETAMINOPHEN WITH CODEINE 300/30MG TABLET PO PRN (17:30)
[2021-05-12] MEDS ORDERED: CEFEPIME 1,000 MG in DEXTROSE 5% WATER 50 ML IV SCH (18:30)
[2021-05-12] MEDS ORDERED: RIVAROXABAN 20 MG TABLET PO SCH (18:30)
[2021-05-12] MEDS: METRONIDAZOLE 500 MG PREMIX 100 ML IV SCH (19:11)
[2021-05-12 20:00] VITALS: BP 149/71
[2021-05-12] MEDS: FUROSEMIDE 40MG TABLET PO SCH (20:52)
[2021-05-12] MEDS: INSULIN GLARGINE UD 100 UNITS/ML SYR SUBCUT SCH (21:14)
[2021-05-12] MEDS: NIFEDIPINE XL 90MG TAB PO SCH (21:50)
[2021-05-13 00:30] VITALS: BP 157/76
[2021-05-13] MEDS: METRONIDAZOLE 500 MG PREMIX 100 ML IV SCH ×2 (01:43→10:54)
[2021-05-13 04:00] VITALS: BP 142/52
[2021-05-13 05:56] LABS: CHLORIDE 104 mEq/L (98-107)
[2021-05-13 05:59] LABS: AMYLASE 89 IU/L (25-115)
[2021-05-13] MEDS ORDERED: LEVOFLOXACIN 500MG PREMIX 100 ML IV SCH (06:30)
[2021-05-13 07:00] LABS: HEMATOCRIT. 36.5 % (36.0-48.0); HEMOGLOBIN. 12.2 g/dL (12.0-16.0); MEAN CORPUSCULAR HEMOGLOBIN 27.3 pg (28.0-32.0); MEAN CORPUSCULAR VOLUME 81.7 fL (81.0-99.0); MEAN PLATELET VOLUME 8.6 fl (7.4-10.4); PLATELET 254 x1000/uL (130-400); RED BLOOD CELL COUNT 4.46 mill/uL (4.2-5.4); RED CELL DISTRIBUTION WIDTH 15.2 % (11.6-14.6)
[2021-05-13] MEDS: FUROSEMIDE 40MG TABLET PO SCH ×2 (08:51→18:26)
[2021-05-13] MEDS: CHOLECALCIFEROL (D3) 1000 UNIT TABLET PO SCH (08:52)
[2021-05-13] MEDS: FISH OIL/OMEGA-3 FATTY ACIDS 1000MG CAPSULE PO SCH (08:52)
[2021-05-13] MEDS: LOSARTAN POTASSIUM 100 MG TABLET PO SCH (08:52)
[2021-05-13] MEDS ORDERED: NIFEDIPINE XL 90MG TAB PO SCH (09:00)
[2021-05-13 12:00] VITALS: BP 137/56
[2021-05-13] MEDS ORDERED: LEVOFLOXACIN 250MG TABLET PO SCH (13:00)
[2021-05-13 16:09] VITALS: BP 150/61
[2021-05-13] MEDS: RIVAROXABAN 15 MG TABLET PO SCH (18:26)
[2021-05-13 20:00] VITALS: BP 153/71
[2021-05-13 20:49] LABS: PLATELET ESTIMATE NORMAL
[2021-05-13] MEDS ORDERED: LEVOFLOXACIN 250MG PREMIX 50 ML IV SCH (21:00)
[2021-05-13] MEDS: NIFEDIPINE XL 90MG TAB PO SCH (21:15)
[2021-05-13] MEDS: METRONIDAZOLE 500MG TABLET PO SCH (21:15)
[2021-05-13] MEDS: INSULIN GLARGINE UD 100 UNITS/ML SYR SUBCUT SCH (21:16)
[2021-05-14] VITALS: BP 143/60
[2021-05-14 04:00] VITALS: BP 149/62
[2021-05-14] MEDS: METRONIDAZOLE 500MG TABLET PO SCH (06:52)
[2021-05-14 08:02] VITALS: BP 135/61
[2021-05-14] MEDS: FUROSEMIDE 40MG TABLET PO SCH ×2 (09:54→18:37)
[2021-05-14] MEDS: FISH OIL/OMEGA-3 FATTY ACIDS 1000MG CAPSULE PO SCH (09:54)
[2021-05-14] MEDS: CHOLECALCIFEROL (D3) 1000 UNIT TABLET PO SCH (09:54)
[2021-05-14] MEDS: LOSARTAN POTASSIUM 100 MG TABLET PO SCH (09:54)
[2021-05-14] MEDS ORDERED: FLUCONAZOLE 150MG TABLET PO NR (11:00)
[2021-05-14] MEDS: LEVOFLOXACIN 250MG PREMIX 50 ML IV SCH (11:47)
[2021-05-14 12:04] VITALS: BP 126/60
[2021-05-14] MEDS: METRONIDAZOLE 500 MG PREMIX 100 ML IV SCH ×2 (13:48→20:32)
[2021-05-14 16:09] VITALS: BP 138/64
[2021-05-14] MEDS: RIVAROXABAN 15 MG TABLET PO SCH (18:37)
[2021-05-14 20:00] VITALS: BP 146/68
[2021-05-14] MEDS: NIFEDIPINE XL 90MG TAB PO SCH (21:17)
[2021-05-14] MEDS: INSULIN GLARGINE UD 100 UNITS/ML SYR SUBCUT SCH (21:18)
[2021-05-15] VITALS: BP 138/53
[2021-05-15] MEDS: METRONIDAZOLE 500 MG PREMIX 100 ML IV SCH ×2 (03:39→11:39)
[2021-05-15] MEDS: SODIUM CHLORIDE 0.45% 1,000 ML IV SCH (03:45)
[2021-05-15 04:00] VITALS: BP 120/51
[2021-05-15 06:39] LABS: HEMATOCRIT. 36.9 % (36.0-48.0); HEMOGLOBIN. 12.3 g/dL (12.0-16.0); MEAN CORPUSCULAR VOLUME 81.3 fL (81.0-99.0); MEAN PLATELET VOLUME 8.5 fl (7.4-10.4); PLATELET 269 x1000/uL (130-400); RED BLOOD CELL COUNT 4.54 mill/uL (4.2-5.4); RED CELL DISTRIBUTION WIDTH 15.2 % (11.6-14.6)
[2021-05-15 08:00] VITALS: BP 113/64
[2021-05-15] MEDS: FISH OIL/OMEGA-3 FATTY ACIDS 1000MG CAPSULE PO SCH (08:28)
[2021-05-15] MEDS: FUROSEMIDE 40MG TABLET PO SCH ×2 (08:28→16:42)
[2021-05-15] MEDS: LOSARTAN POTASSIUM 100 MG TABLET PO SCH (08:28)
[2021-05-15] MEDS: CHOLECALCIFEROL (D3) 1000 UNIT TABLET PO SCH (08:28)
[2021-05-15 12:00] VITALS: BP 118/50
[2021-05-15] MEDS: INSULIN LISPRO 100 UNITS/ML SUBCUT SCH ×3 (12:50→21:00)
[2021-05-15] MEDS: LEVOFLOXACIN 250MG PREMIX 50 ML IV SCH (12:55)
[2021-05-15] MEDS: METRONIDAZOLE 500MG TABLET PO SCH ×2 (14:05→21:22)
[2021-05-15 16:00] VITALS: BP 115/60
[2021-05-15] MEDS: PANTOPRAZOLE SODIUM 40 MG/VIAL IV SCH (16:42)
[2021-05-15 18:04] LABS: PLATELET ESTIMATE NORMAL
[2021-05-15] MEDS: RIVAROXABAN 15 MG TABLET PO SCH (18:33)
[2021-05-15] MEDS ORDERED: NIFE90TA2 MT (19:56)
[2021-05-15 20:00] VITALS: BP 122/59
[2021-05-15] MEDS ORDERED: TRAM50TA3 PO (20:01)
[2021-05-15] MEDS: NIFEDIPINE XL 90MG TAB PO SCH (21:32)
[2021-05-15] MEDS: INSULIN GLARGINE UD 100 UNITS/ML SYR SUBCUT SCH (21:35)
[2021-05-16] VITALS: BP 124/53
[2021-05-16 04:00] VITALS: BP 117/54
[2021-05-16] MEDS: METRONIDAZOLE 500MG TABLET PO SCH ×2 (06:07→14:35)
[2021-05-16] MEDS: INSULIN LISPRO 100 UNITS/ML SUBCUT SCH ×2 (07:50→13:08)
[2021-05-16 08:00] VITALS: BP 110/59
[2021-05-16 09:15] VITALS: BP 112/64
[2021-05-16] MEDS: FISH OIL/OMEGA-3 FATTY ACIDS 1000MG CAPSULE PO SCH (09:16)
[2021-05-16] MEDS: FUROSEMIDE 40MG TABLET PO SCH (09:17)
[2021-05-16] MEDS: CHOLECALCIFEROL (D3) 1000 UNIT TABLET PO SCH (09:17)
[2021-05-16] MEDS: LOSARTAN POTASSIUM 100 MG TABLET PO SCH (09:17)
[2021-05-16] MEDS: PANTOPRAZOLE SODIUM 40 MG/VIAL IV SCH (09:20)
[2021-05-16] MEDS ORDERED: LEVOFLOXACIN 250MG TABLET PO SCH (11:00)
[2021-05-16 12:00] VITALS: BP 137/55
[2021-05-16] MEDS ORDERED: DEXTROSE 50% WATER 50ML SYRINGE IV PRN (12:15)
[2021-05-16] MEDS ORDERED: BLOOD SUGAR DIAGNOSTIC STRIP TEST SCH (12:20)
[2021-05-16 15:28] VITALS: BP 130/58
[2021-06-04] MEDS ORDERED: LACT1CAP77 PO (08:22)
[2021-06-04] MEDS ORDERED: VANJ5 PO (08:30)
== END 2021-05-16 17:19 | disposition home or self-care (01) | DRG 392 ==
LOC: ER 18:17 → 6WST 05-12 00:28 → ENRESERV 05-12 08:24
PROVIDERS: ADMIT Internal Medicine Nephrology; ATTEND Internal Medicine Nephrology
DX: K57.32 Diverticulitis of large intestine without perforation or abscess without bleeding (principal); I10 Essential (primary) hypertension; I48.91 Unspecified atrial fibrillation; J44.9 Chronic obstructive pulmonary disease, unspecified; R80.9 Proteinuria, unspecified; E11.21 Type 2 diabetes mellitus with diabetic nephropathy; Z82.49 Family history of ischemic heart disease and other diseases of the circulatory system; Z83.3 Family history of diabetes mellitus; Z87.891 Personal history of nicotine dependence; Z79.01 Long term (current) use of anticoagulants; Z88.0 Allergy status to penicillin; Z79.899 Other long term (current) drug therapy; Z87.440 Personal history of urinary (tract) infections
CPT/HCPCS: 36415; 74176; 80048; 80053; 80305; 81003; 82150; 82962; 83036; 83605; 85025; 93005; 99285; A6261; C9113; J0692; J1815; J1956; J2270; J2405; J3490; J7040; J7060

== ENCOUNTER 2023-02-19 12:52 | Inpatient (IN) | payer BC ==
[~2023-02-19] VITALS: Ht 165.1 cm; Wt 77.7 kg
[~2023-02-19 12:52] MED LIST changes: -ACET-3161 PO; -EVOL140P3 SQ; +FURO-151 PO; +LACT1CAP77 PO; -LOSA100T3 PO; +LOSA100T4 PO; -NIFE10CA PO; +NIFE90TA2 MT; -NIFE90TA2 PO; +SPIR25TA PO; +TRAM50TA3 PO; -TRIA1CAP PO
[2023-02-19] MEDS ORDERED: FUROSEMIDE 40MG/4ML VIAL IVP ONE (13:15)
[2023-02-19 13:46] LABS: BASOPHILS % 0.8 % (0.0-2.0); EOSINOPHILS % 0.6 % (0.0-5.0); HEMATOCRIT. 38.7 % (36.0-48.0); HEMOGLOBIN. 12.6 g/dL (12.0-16.0); MEAN CORPUSCULAR HEMOGLOBIN 27.4 pg (28.0-32.0); MEAN CORPUSCULAR VOLUME 84.1 fL (81.0-99.0); MEAN PLATELET VOLUME 9.4 fl (7.4-10.4); MONOCYTES % 11.4 % (2.0-8.0); NEUTROPHILS % 77.2 % (40.0-76.0); PLATELET 245 x1000/uL (130-400); RED CELL DISTRIBUTION WIDTH 16.4 % (11.6-14.6)
[2023-02-19 13:54] LABS: CHLORIDE 104 mEq/L (98-107)
[2023-02-19 13:55] LABS: INR 1.2
[2023-02-19] MEDS: NIFEDIPINE XL 90MG TAB PO SCH (14:20)
[2023-02-19] MEDS ORDERED: FINE10TA PO (14:58)
[2023-02-19] MEDS ORDERED: DAPA10TA PO (14:59)
[2023-02-19] MEDS: FUROSEMIDE 40MG/4ML VIAL IVP SCH (17:00)
[2023-02-19] MEDS ORDERED: RIVAROXABAN 20 MG TABLET PO SCH (17:00)
[2023-02-20] VITALS (7 sets, daily range): BP systolic 104–133; BP diastolic 46–71
[2023-02-20 07:17] LABS: HEMATOCRIT. 36.2 % (36.0-48.0); HEMOGLOBIN. 11.8 g/dL (12.0-16.0); MEAN CORPUSCULAR HEMOGLOBIN 27.2 pg (28.0-32.0); MEAN CORPUSCULAR VOLUME 83.5 fL (81.0-99.0); MEAN PLATELET VOLUME 8.7 fl (7.4-10.4); PLATELET 210 x1000/uL (130-400); RED BLOOD CELL COUNT 4.34 mill/uL (4.2-5.4); RED CELL DISTRIBUTION WIDTH 16.6 % (11.6-14.6)
[2023-02-20 08:58] LABS: PLATELET ESTIMATE NORMAL
[2023-02-20] MEDS: LOSARTAN POTASSIUM 100 MG TABLET PO SCH (09:00)
[2023-02-20] MEDS: NIFEDIPINE XL 90MG TAB PO SCH (09:00)
[2023-02-20] MEDS: FUROSEMIDE 40MG/4ML VIAL IVP SCH ×2 (09:38→17:25)
[2023-02-20] MEDS: GUAIFENESIN 600MG ER TABLET PO SCH ×2 (13:39→21:05)
[2023-02-20] MEDS: SILDENAFIL CITRATE 20MG TABLET PO SCH ×2 (13:41→21:05)
[2023-02-20] MEDS ORDERED: DEXTROSE 50% WATER 50ML SYRINGE IV PRN (14:15)
[2023-02-20] MEDS: BLOOD SUGAR DIAGNOSTIC STRIP TEST SCH ×2 (16:51→21:05)
[2023-02-20] MEDS: RIVAROXABAN 15 MG TABLET PO SCH (17:25)
[2023-02-20] MEDS: INSULIN LISPRO 100 UNITS/ML SUBCUT SCH ×2 (17:25→21:08)
[2023-02-20] MEDS: INSULIN GLARGINE 100 UNITS/ML SUBCUT SCH (21:06)
[2023-02-21] VITALS: BP 129/66
[2023-02-21 04:00] VITALS: BP 143/57
[2023-02-21] MEDS: BLOOD SUGAR DIAGNOSTIC STRIP TEST SCH ×4 (05:47→20:59)
[2023-02-21] MEDS: INSULIN LISPRO 100 UNITS/ML SUBCUT SCH ×4 (05:47→21:00)
[2023-02-21] MEDS: SILDENAFIL CITRATE 20MG TABLET PO SCH ×3 (05:48→21:13)
[2023-02-21 08:00] VITALS: BP 140/48
[2023-02-21] MEDS: NIFEDIPINE XL 90MG TAB PO SCH (09:07)
[2023-02-21] MEDS: GUAIFENESIN 600MG ER TABLET PO SCH ×2 (09:07→21:13)
[2023-02-21] MEDS: FUROSEMIDE 40MG/4ML VIAL IVP SCH ×2 (09:07→17:39)
[2023-02-21 11:34] LABS: BASOPHILS % 0.4 % (0.0-2.0); EOSINOPHILS % 1.1 % (0.0-5.0); HEMATOCRIT. 36.6 % (36.0-48.0); HEMOGLOBIN. 12.1 g/dL (12.0-16.0); LYMPHOCYTES % 9.6 % (20.0-50.0); MEAN CORPUSCULAR HEMOGLOBIN 27.5 pg (28.0-32.0); MEAN CORPUSCULAR VOLUME 83.3 fL (81.0-99.0); MEAN PLATELET VOLUME 8.9 fl (7.4-10.4); MONOCYTES % 13.1 % (2.0-8.0); NEUTROPHILS % 75.8 % (40.0-76.0); PLATELET 203 x1000/uL (130-400); RED CELL DISTRIBUTION WIDTH 16.9 % (11.6-14.6)
[2023-02-21 12:10] VITALS: BP 144/46
[2023-02-21 16:09] VITALS: BP 116/58
[2023-02-21] MEDS: RIVAROXABAN 15 MG TABLET PO SCH (17:38)
[2023-02-21 20:00] VITALS: BP 133/55
[2023-02-21] MEDS: INSULIN GLARGINE 100 UNITS/ML SUBCUT SCH (21:18)
[2023-02-22] VITALS: BP 116/87
[2023-02-22 04:00] VITALS: BP 111/51
[2023-02-22] MEDS: INSULIN LISPRO 100 UNITS/ML SUBCUT SCH ×2 (06:35→12:58)
[2023-02-22] MEDS: BLOOD SUGAR DIAGNOSTIC STRIP TEST SCH ×2 (06:35→12:56)
[2023-02-22 08:00] VITALS: BP 110/82
[2023-02-22 08:33] LABS: HEMATOCRIT. 35.2 % (36.0-48.0); HEMOGLOBIN. 11.8 g/dL (12.0-16.0); MEAN CORPUSCULAR HEMOGLOBIN 27.7 pg (28.0-32.0); MEAN CORPUSCULAR VOLUME 82.8 fL (81.0-99.0); MEAN PLATELET VOLUME 9.3 fl (7.4-10.4); PLATELET 211 x1000/uL (130-400); RED BLOOD CELL COUNT 4.26 mill/uL (4.2-5.4); RED CELL DISTRIBUTION WIDTH 16.6 % (11.6-14.6)
[2023-02-22] MEDS: GUAIFENESIN 600MG ER TABLET PO SCH ×2 (09:00→09:25)
[2023-02-22] MEDS: FUROSEMIDE 40MG/4ML VIAL IVP SCH (09:24)
[2023-02-22] MEDS: NIFEDIPINE XL 90MG TAB PO SCH (09:25)
[2023-02-22] MEDS: LOSARTAN POTASSIUM 100 MG TABLET PO SCH (09:25)
[2023-02-22 12:00] VITALS: BP 107/52
[2023-02-22 13:43] LABS: PLATELET ESTIMATE NORMAL
[2023-02-22] MEDS ORDERED: FURO80TA87 MT (15:24)
[2023-02-22] MEDS ORDERED: EMPA25TA MT (15:24)
[2023-02-22 15:29] VITALS: BP 107/52
[2023-02-22 16:00] VITALS: BP 121/58
[2023-02-22] MEDS ORDERED: FUROSEMIDE 40MG TABLET PO SCH ×2 (17:15→21:00)
[2023-02-23] MEDS ORDERED: NIFEDIPINE XL 90MG TAB PO SCH (21:00)
== END 2023-02-22 17:45 | disposition home or self-care (01) | DRG 291 ==
LOC: ER 12:52 → 8WST 16:40
PROVIDERS: ADMIT Internal Medicine; ATTEND Internal Medicine
DX: I13.0 Hypertensive heart and chronic kidney disease with heart failure and stage 1 through stage 4 chronic kidney disease, or unspecified chronic kidney disease (principal); I50.31 Acute diastolic (congestive) heart failure; I48.20 Chronic atrial fibrillation, unspecified; N17.9 Acute kidney failure, unspecified; E11.22 Type 2 diabetes mellitus with diabetic chronic kidney disease; N18.9 Chronic kidney disease, unspecified; Z20.822 Contact with and (suspected) exposure to COVID-19; E78.5 Hyperlipidemia, unspecified; I25.10 Atherosclerotic heart disease of native coronary artery without angina pectoris; I27.21 Secondary pulmonary arterial hypertension; I49.5 Sick sinus syndrome; E11.21 Type 2 diabetes mellitus with diabetic nephropathy; Z79.01 Long term (current) use of anticoagulants; Z79.899 Other long term (current) drug therapy; Z87.891 Personal history of nicotine dependence; Z88.0 Allergy status to penicillin; Z83.3 Family history of diabetes mellitus; Z82.49 Family history of ischemic heart disease and other diseases of the circulatory system
CPT/HCPCS: 36415; 71045; 76700; 80048; 80053; 82962; 83036; 83735; 83880; 84484; 85025; 87426; 87804; 93005; 93306; 93970; 99291; C9803; J1815; J1940

== ENCOUNTER 2023-04-21 15:25 | Inpatient (IN) | payer BC ==
[~2023-04-21] VITALS: Ht 167.6 cm; Wt 81.2 kg
[~2023-04-21 15:25] MED LIST changes: -CHOL100044 PO; +CLIN-194 MT; +DAPA10TA MT; +EMPA25TA MT; +FINE10TA PO; -FURO-151 PO; +FURO80TA87 MT; -METF-416 PO; +MULT-1203 MT; -RIVA20TA PO; -SPIR25TA PO; -TRAM50TA3 PO; +UBID400C8 PO; +VIT1CAPS47 MT
[2023-04-21 16:11] LABS: HEMOGLOBIN. 11.1 g/dL (12.0-16.0); MEAN CORPUSCULAR HEMOGLOBIN 26.1 pg (28.0-32.0); MEAN CORPUSCULAR VOLUME 82.1 fL (81.0-99.0); MEAN PLATELET VOLUME 8.3 fl (7.4-10.4); PLATELET 277 x1000/uL (130-400); RED BLOOD CELL COUNT 4.27 mill/uL (4.2-5.4); RED CELL DISTRIBUTION WIDTH 17.3 % (11.6-14.6)
[2023-04-21 16:17] LABS: CHLORIDE 98 mEq/L (98-107)
[2023-04-21 18:43] LABS: PLATELET ESTIMATE NORMAL
[2023-04-21 20:00] LABS: CLARITY URINE CLEAR (CLEAR); COLOR URINE YELLOW (YELLOW); KETONES URINE NEGATIVE (NEGATIVE); LEUKOCYTE ESTERASE URINE 2+ (NEGATIVE); NITRITE URINE NEGATIVE (NEGATIVE); OCCULT BLOOD URINE TRACE (NEGATIVE); PH URINE 5.5 (4.5-8.0); PROTEIN URINE 1+ (NEGATIVE); SPECIFIC GRAVITY URINE 1.013 (1.005-1.030); UROBILINOGEN URINE 0.2 E.U./dL (0.2-1.0)
[2023-04-21] MEDS ORDERED: SULFAMETHOXAZOLE/TRIMETHOPRIM 800/160MG TABLET PO NR (21:08)
[2023-04-21] MEDS ORDERED: METRONIDAZOLE 500MG TABLET PO NR (21:08)
[2023-04-21] MEDS ORDERED: VANCOMYCIN 1000MG/20ML ORAL SOLN PO NR (21:15)
[2023-04-21] MEDS ORDERED: LACTOBACILLUS GG CAPSULE PO NR (21:15)
[2023-04-21 22:29] VITALS: BP 109/52; PULSE 82; RESP 20; TEMP 97.9
[2023-04-21] MEDS ORDERED: MEROPENEM 1,000 MG in SODIUM CHLORIDE 0.9% 100 ML IV SCH (23:15)
[2023-04-21] MEDS ORDERED: DIPHENHYDRAMINE 50MG/ML VIAL IV PRN (23:15)
[2023-04-21] MEDS ORDERED: ACETAMINOPHEN 325MG TABLET PO PRN (23:15)
[2023-04-21] MEDS ORDERED: ONDANSETRON HCL 4MG/2ML INJ IV PRN (23:15)
[2023-04-21] MEDS ORDERED: DEXTROSE 50% WATER 50ML SYRINGE IV PRN (23:15)
[2023-04-22] VITALS (7 sets, daily range): BP systolic 109–146; BP diastolic 5–68; PULSE 78–90; RESP 17–20; TEMP 97.9–99.9
[2023-04-22] MEDS: ACETAMINOPHEN 325MG TABLET PO PRN (00:37)
[2023-04-22] MEDS: SODIUM CHLORIDE 0.9% 1,000 ML IV SCH ×3 (00:38→21:09)
[2023-04-22] MEDS: MEROPENEM 500MG in NORMAL SALINE 50ML IV SCH ×2 (01:13→11:51)
[2023-04-22] MEDS: BLOOD SUGAR DIAGNOSTIC STRIP TEST SCH ×4 (06:16→21:09)
[2023-04-22 06:27] LABS: HEMOGLOBIN. 11.3 g/dL (12.0-16.0); MEAN CORPUSCULAR HEMOGLOBIN 26.1 pg (28.0-32.0); MEAN CORPUSCULAR VOLUME 80.8 fL (81.0-99.0); MEAN PLATELET VOLUME 8.8 fl (7.4-10.4); PLATELET 315 x1000/uL (130-400); RED BLOOD CELL COUNT 4.33 mill/uL (4.2-5.4); RED CELL DISTRIBUTION WIDTH 17.3 % (11.6-14.6)
[2023-04-22 06:48] LABS: PHOSPHORUS 4.3 mg/dL (2.5-4.9)
[2023-04-22] MEDS: INSULIN LISPRO 100 UNITS/ML SUBCUT SCH ×4 (07:27→21:43)
[2023-04-22] MEDS: LACTOBACILLUS GG CAPSULE PO SCH (08:26)
[2023-04-22 14:09] LABS: PLATELET ESTIMATE NORMAL
[2023-04-22] MEDS: MORPHINE SULFATE 2 MG/ML CPJ (NOT FOR IM USE) IV PRN (14:10)
[2023-04-22] MEDS ORDERED: NALOXONE HCL 0.4MG/ML VIAL IV PRN (14:15)
[2023-04-22 16:44] LABS: HEMATOCRIT. 33.3 % (36.0-48.0); HEMOGLOBIN. 10.8 g/dL (12.0-16.0); MEAN CORPUSCULAR HEMOGLOBIN 25.8 pg (28.0-32.0); MEAN CORPUSCULAR VOLUME 79.4 fL (81.0-99.0); MEAN PLATELET VOLUME 7.6 fl (7.4-10.4); PLATELET 307 x1000/uL (130-400); RED BLOOD CELL COUNT 4.19 mill/uL (4.2-5.4); RED CELL DISTRIBUTION WIDTH 17.1 % (11.6-14.6)
[2023-04-22 16:54] LABS: INR 1.3; PROTHROMBIN TIME 14.2 sec (9.6-11.0)
[2023-04-22 17:13] LABS: PLATELET ESTIMATE NORMAL
[2023-04-22] MEDS ORDERED: KCL 20MEQ/100ML PREMIX 100 ML IV NR (20:00)
[2023-04-23] VITALS: BP 137/59; PULSE 92; RESP 21; TEMP 99.9
[2023-04-23] MEDS: MEROPENEM 500MG in NORMAL SALINE 50ML IV SCH (03:30)
[2023-04-23 04:00] VITALS: BP 131/57; PULSE 91; RESP 18; TEMP 99.7
[2023-04-23] MEDS ORDERED: CEFEPIME 2,000 MG in DEXT 5% WATER 100 ML IV SCH (04:30)
[2023-04-23] MEDS: SODIUM CHLORIDE 0.9% 1,000 ML IV SCH ×2 (05:28→15:23)
[2023-04-23] MEDS ORDERED: METRONIDAZOLE 500 MG PREMIX 100 ML IV SCH (05:30)
[2023-04-23] MEDS: BLOOD SUGAR DIAGNOSTIC STRIP TEST SCH ×4 (06:16→21:42)
[2023-04-23] MEDS: INSULIN LISPRO 100 UNITS/ML SUBCUT SCH ×4 (06:16→21:43)
[2023-04-23 06:21] LABS: HEMATOCRIT. 34.8 % (36.0-48.0); HEMOGLOBIN. 11.3 g/dL (12.0-16.0); MEAN CORPUSCULAR VOLUME 80.4 fL (81.0-99.0); MEAN PLATELET VOLUME 8.7 fl (7.4-10.4); PLATELET 345 x1000/uL (130-400); RED BLOOD CELL COUNT 4.33 mill/uL (4.2-5.4); RED CELL DISTRIBUTION WIDTH 16.9 % (11.6-14.6)
[2023-04-23] MEDS: MORPHINE SULFATE 2 MG/ML CPJ (NOT FOR IM USE) IV PRN (06:41)
[2023-04-23 07:22] LABS: PHOSPHORUS 3.3 mg/dL (2.5-4.9)
[2023-04-23 08:00] VITALS: BP 124/61; PULSE 84; RESP 18; TEMP 98.7
[2023-04-23] MEDS ORDERED: POTASSIUM CHLORIDE 20MEQ TABLET SR PO SCH (09:15)
[2023-04-23] MEDS: LACTOBACILLUS GG CAPSULE PO SCH (09:49)
[2023-04-23] MEDS: AMLODIPINE 2.5MG TABLET PO SCH (09:49)
[2023-04-23 12:00] VITALS: BP 110/63; PULSE 92; RESP 16; TEMP 99
[2023-04-23 16:00] VITALS: BP 109/55; PULSE 78; RESP 16; TEMP 98.5
[2023-04-23] MEDS: ENOXAPARIN 30MG/0.3ML SYR SUBCUT SCH (18:00)
[2023-04-23] MEDS: VANCOMYCIN 1000MG/20ML ORAL SOLN PO SCH (18:52)
[2023-04-23 19:43] LABS: PLATELET ESTIMATE NORMAL
[2023-04-23 20:00] VITALS: BP 129/57; PULSE 91; RESP 18; TEMP 97.7
[2023-04-24] VITALS: BP 114/56; PULSE 86; RESP 18; TEMP 98.1
[2023-04-24] MEDS: VANCOMYCIN 1000MG/20ML ORAL SOLN PO SCH ×5 (01:02→23:59)
[2023-04-24] MEDS: MORPHINE SULFATE 2 MG/ML CPJ (NOT FOR IM USE) IV PRN ×2 (01:09→12:15)
[2023-04-24 04:00] VITALS: BP 117/55; PULSE 75; RESP 19; TEMP 98.8
[2023-04-24] MEDS: SODIUM CHLORIDE 0.9% 1,000 ML IV SCH ×3 (04:28→23:59)
[2023-04-24] MEDS ORDERED: CEFEPIME 2,000 MG in DEXT 5% WATER 100 ML IV SCH (06:00)
[2023-04-24] MEDS: BLOOD SUGAR DIAGNOSTIC STRIP TEST SCH ×4 (06:49→20:12)
[2023-04-24] MEDS: INSULIN LISPRO 100 UNITS/ML SUBCUT SCH ×4 (06:50→20:12)
[2023-04-24 07:02] LABS: HEMATOCRIT. 34.4 % (36.0-48.0); HEMOGLOBIN. 11.1 g/dL (12.0-16.0); MEAN CORPUSCULAR HEMOGLOBIN 26.1 pg (28.0-32.0); MEAN CORPUSCULAR VOLUME 80.6 fL (81.0-99.0); MEAN PLATELET VOLUME 8.4 fl (7.4-10.4); PLATELET 311 x1000/uL (130-400); RED BLOOD CELL COUNT 4.27 mill/uL (4.2-5.4); RED CELL DISTRIBUTION WIDTH 17.7 % (11.6-14.6)
[2023-04-24 08:00] VITALS: BP 121/67; PULSE 91; RESP 18; TEMP 97.5
[2023-04-24] MEDS: LACTOBACILLUS GG CAPSULE PO SCH (08:49)
[2023-04-24] MEDS: AMLODIPINE 2.5MG TABLET PO SCH (08:49)
[2023-04-24] MEDS ORDERED: POTASSIUM CHLORIDE 20MEQ TABLET SR PO NR (09:00)
[2023-04-24 12:00] VITALS: BP 127/80; PULSE 95; RESP 18; TEMP 97.8
[2023-04-24] MEDS: POTASSIUM CHLORIDE 10MEQ TABLET SR PO SCH (14:52)
[2023-04-24 16:00] VITALS: BP 111/72; TEMP 97.7
[2023-04-24 16:29] LABS: PLATELET ESTIMATE NORMAL
[2023-04-24] MEDS: ENOXAPARIN 30MG/0.3ML SYR SUBCUT SCH (17:36)
[2023-04-24 20:00] VITALS: BP 124/66; PULSE 87; RESP 18; TEMP 97.7
[2023-04-25] VITALS: BP 116/56; PULSE 89; RESP 18; TEMP 97.9
[2023-04-25 04:00] VITALS: BP 131/65; PULSE 80; RESP 18; TEMP 98.1
[2023-04-25] MEDS: VANCOMYCIN 1000MG/20ML ORAL SOLN PO SCH ×3 (05:46→17:04)
[2023-04-25] MEDS: INSULIN LISPRO 100 UNITS/ML SUBCUT SCH ×4 (05:49→21:00)
[2023-04-25] MEDS: BLOOD SUGAR DIAGNOSTIC STRIP TEST SCH ×4 (05:49→21:12)
[2023-04-25] MEDS: SODIUM CHLORIDE 0.9% 1,000 ML IV SCH ×2 (06:29→17:04)
[2023-04-25 06:32] LABS: HEMOGLOBIN. 11.4 g/dL (12.0-16.0); MEAN CORPUSCULAR HEMOGLOBIN 25.9 pg (28.0-32.0); MEAN CORPUSCULAR VOLUME 79.5 fL (81.0-99.0); MEAN PLATELET VOLUME 8.1 fl (7.4-10.4); PLATELET 305 x1000/uL (130-400); RED CELL DISTRIBUTION WIDTH 17.5 % (11.6-14.6)
[2023-04-25 08:00] VITALS: BP 128/53; PULSE 82; RESP 18; TEMP 98.1
[2023-04-25] MEDS: LACTOBACILLUS GG CAPSULE PO SCH (08:37)
[2023-04-25] MEDS: AMLODIPINE 2.5MG TABLET PO SCH (08:38)
[2023-04-25] MEDS: POTASSIUM CHLORIDE 10MEQ TABLET SR PO SCH (08:39)
[2023-04-25] MEDS ORDERED: INSULIN GLARGINE 100 UNITS/ML SUBCUT SCH (09:15)
[2023-04-25] MEDS: INSULIN GLARGINE 100 UNITS/ML SUBCUT SCH (09:30)
[2023-04-25] MEDS ORDERED: NON FORMULARY PATIENT HOME MED XX SCH (09:45)
[2023-04-25 12:00] VITALS: BP 137/75; PULSE 83; RESP 20; TEMP 97.7
[2023-04-25 14:13] LABS: PLATELET ESTIMATE NORMAL
[2023-04-25 16:00] VITALS: BP 130/68; PULSE 80; RESP 20; TEMP 97.9
[2023-04-25] MEDS: ENOXAPARIN 30MG/0.3ML SYR SUBCUT SCH (17:04)
[2023-04-25 20:00] VITALS: BP 133/63; PULSE 96; RESP 18; TEMP 97.6
[2023-04-25] MEDS: DIATR MEGLU/DIATRIZOATE SOLN 30ML PO SCH ×2 (21:17→22:16)
[2023-04-25] MEDS: LATANOPROST 0.005% OPHTH DROPS 2.5ML BOTHEYE SCH (22:16)
[2023-04-26] MEDS: VANCOMYCIN 1000MG/20ML ORAL SOLN PO SCH ×5 (01:00→23:05)
[2023-04-26 03:04] VITALS: BP 130/78; PULSE 87; RESP 18; TEMP 97.9
[2023-04-26 05:48] LABS: HEMATOCRIT. 34.4 % (36.0-48.0); HEMOGLOBIN. 11.2 g/dL (12.0-16.0); MEAN CORPUSCULAR VOLUME 79.8 fL (81.0-99.0); MEAN PLATELET VOLUME 8.5 fl (7.4-10.4); PLATELET 330 x1000/uL (130-400); RED BLOOD CELL COUNT 4.31 mill/uL (4.2-5.4); RED CELL DISTRIBUTION WIDTH 17.4 % (11.6-14.6)
[2023-04-26] MEDS: SODIUM CHLORIDE 0.9% 1,000 ML IV SCH ×3 (05:58→23:03)
[2023-04-26] MEDS: BLOOD SUGAR DIAGNOSTIC STRIP TEST SCH ×4 (05:59→21:24)
[2023-04-26] MEDS: INSULIN LISPRO 100 UNITS/ML SUBCUT SCH ×4 (06:00→21:26)
[2023-04-26] MEDS: DIATR MEGLU/DIATRIZOATE SOLN 30ML PO NR ×2 (07:09→08:09)
[2023-04-26 08:00] VITALS: BP 137/74; PULSE 79; RESP 20; TEMP 97.9
[2023-04-26] MEDS: INSULIN GLARGINE 100 UNITS/ML SUBCUT SCH (10:00)
[2023-04-26] MEDS: LACTOBACILLUS GG CAPSULE PO SCH (10:21)
[2023-04-26] MEDS: POTASSIUM CHLORIDE 10MEQ TABLET SR PO SCH (10:21)
[2023-04-26] MEDS: AMLODIPINE 2.5MG TABLET PO SCH (10:22)
[2023-04-26 12:00] VITALS: BP 127/56; PULSE 84; RESP 20; TEMP 97.3
[2023-04-26 16:00] VITALS: BP 137/65; PULSE 87; RESP 20; TEMP 97.7
[2023-04-26 16:08] LABS: PLATELET ESTIMATE NORMAL
[2023-04-26] MEDS: ENOXAPARIN 30MG/0.3ML SYR SUBCUT SCH (17:08)
[2023-04-26 20:00] VITALS: BP 139/70; PULSE 86; RESP 20; TEMP 98.4
[2023-04-26] MEDS: LATANOPROST 0.005% OPHTH DROPS 2.5ML BOTHEYE SCH (21:24)
[2023-04-27] VITALS: BP 127/80; PULSE 80; RESP 18; TEMP 98.4
[2023-04-27 04:00] VITALS: BP 148/66; PULSE 90; RESP 20; TEMP 97
[2023-04-27] MEDS: VANCOMYCIN 1000MG/20ML ORAL SOLN PO SCH ×3 (06:18→16:24)
[2023-04-27] MEDS: BLOOD SUGAR DIAGNOSTIC STRIP TEST SCH ×4 (06:50→21:00)
[2023-04-27] MEDS: INSULIN LISPRO 100 UNITS/ML SUBCUT SCH ×4 (06:51→21:00)
[2023-04-27 07:19] LABS: BASOPHILS % 0.8 % (0.0-2.0); EOSINOPHILS % 2.5 % (0.0-5.0); HEMATOCRIT. 35.5 % (36.0-48.0); HEMOGLOBIN. 11.5 g/dL (12.0-16.0); LYMPHOCYTES % 8.5 % (20.0-50.0); MEAN CORPUSCULAR HEMOGLOBIN 25.9 pg (28.0-32.0); MEAN CORPUSCULAR VOLUME 79.8 fL (81.0-99.0); MEAN PLATELET VOLUME 8.3 fl (7.4-10.4); MONOCYTES % 13.4 % (2.0-8.0); NEUTROPHILS % 74.8 % (40.0-76.0); PLATELET 324 x1000/uL (130-400); RED BLOOD CELL COUNT 4.45 mill/uL (4.2-5.4); RED CELL DISTRIBUTION WIDTH 18.1 % (11.6-14.6)
[2023-04-27 08:08] VITALS: BP 120/54; PULSE 64; RESP 20; TEMP 97.6
[2023-04-27] MEDS: AMLODIPINE 2.5MG TABLET PO SCH (08:42)
[2023-04-27] MEDS: LACTOBACILLUS GG CAPSULE PO SCH (08:43)
[2023-04-27] MEDS: POTASSIUM CHLORIDE 10MEQ TABLET SR PO SCH (08:43)
[2023-04-27] MEDS: INSULIN GLARGINE 100 UNITS/ML SUBCUT SCH ×2 (10:00→10:49)
[2023-04-27] MEDS: SODIUM CHLORIDE 0.9% 1,000 ML IV SCH (11:38)
[2023-04-27 12:00] VITALS: BP 121/64; PULSE 65; RESP 16; TEMP 97.8
[2023-04-27] MEDS ORDERED: POTASSIUM CHLORIDE 20MEQ TABLET SR PO NR (16:00)
[2023-04-27 16:07] VITALS: BP 132/68; PULSE 78; RESP 18; TEMP 98.6
[2023-04-27] MEDS: CITRIC ACID/SODIUM CITRATE SOLN 15ML UDC PO SCH (16:22)
[2023-04-27] MEDS: ENOXAPARIN 30MG/0.3ML SYR SUBCUT SCH (16:25)
[2023-04-27 20:00] VITALS: BP 119/56; PULSE 78; RESP 18; TEMP 97.9
[2023-04-27] MEDS: LATANOPROST 0.005% OPHTH DROPS 2.5ML BOTHEYE SCH (20:53)
[2023-04-28] VITALS: BP 128/61; PULSE 67; RESP 18; TEMP 97.8
[2023-04-28] MEDS: VANCOMYCIN 1000MG/20ML ORAL SOLN PO SCH ×5 (01:20→23:31)
[2023-04-28] MEDS: SODIUM CHLORIDE 0.9% 1,000 ML IV SCH ×2 (01:42→07:34)
[2023-04-28 06:21] LABS: EOSINOPHILS % 2.6 % (0.0-5.0); HEMATOCRIT. 35.5 % (36.0-48.0); HEMOGLOBIN. 11.3 g/dL (12.0-16.0); LYMPHOCYTES % 10.3 % (20.0-50.0); MEAN CORPUSCULAR HEMOGLOBIN 25.4 pg (28.0-32.0); MEAN CORPUSCULAR VOLUME 79.4 fL (81.0-99.0); MEAN PLATELET VOLUME 8.4 fl (7.4-10.4); MONOCYTES % 13.5 % (2.0-8.0); NEUTROPHILS % 72.6 % (40.0-76.0); PLATELET 325 x1000/uL (130-400); RED BLOOD CELL COUNT 4.47 mill/uL (4.2-5.4); RED CELL DISTRIBUTION WIDTH 17.8 % (11.6-14.6)
[2023-04-28] MEDS: BLOOD SUGAR DIAGNOSTIC STRIP TEST SCH ×4 (07:35→20:17)
[2023-04-28] MEDS: INSULIN LISPRO 100 UNITS/ML SUBCUT SCH ×4 (07:40→20:17)
[2023-04-28 08:18] VITALS: BP 122/66; PULSE 50; RESP 20; TEMP 97.8
[2023-04-28] MEDS: LACTOBACILLUS GG CAPSULE PO SCH (08:36)
[2023-04-28] MEDS: CITRIC ACID/SODIUM CITRATE SOLN 15ML UDC PO SCH ×3 (08:36→16:21)
[2023-04-28] MEDS: POTASSIUM CHLORIDE 10MEQ TABLET SR PO SCH (08:37)
[2023-04-28] MEDS: AMLODIPINE 2.5MG TABLET PO SCH (08:37)
[2023-04-28] MEDS: INSULIN GLARGINE 100 UNITS/ML SUBCUT SCH (10:00)
[2023-04-28] MEDS ORDERED: POTASSIUM CHLORIDE 20MEQ TABLET SR PO NR (10:00)
[2023-04-28 12:00] VITALS: BP 127/56; PULSE 43; RESP 20; TEMP 98.3
[2023-04-28] MEDS: SODIUM BICARBONATE 100 MEQ in DEXTROSE 5% WATER 1,000 ML IV SCH (12:13)
[2023-04-28 16:06] VITALS: BP 124/69; PULSE 66; RESP 20; TEMP 97.6
[2023-04-28] MEDS: ENOXAPARIN 30MG/0.3ML SYR SUBCUT SCH (16:35)
[2023-04-28 20:00] VITALS: BP 122/62; PULSE 78; RESP 20; TEMP 98.2
[2023-04-28] MEDS: LATANOPROST 0.005% OPHTH DROPS 2.5ML BOTHEYE SCH (20:24)
[2023-04-29] VITALS: BP 135/75; PULSE 78; RESP 19; TEMP 97.5
[2023-04-29 04:00] VITALS: BP 120/66; PULSE 87; RESP 19; TEMP 97.8
[2023-04-29 05:51] LABS: EOSINOPHILS % 3.4 % (0.0-5.0); HEMATOCRIT. 35.1 % (36.0-48.0); HEMOGLOBIN. 11.2 g/dL (12.0-16.0); LYMPHOCYTES % 12.4 % (20.0-50.0); MEAN CORPUSCULAR HEMOGLOBIN 25.8 pg (28.0-32.0); MEAN CORPUSCULAR VOLUME 80.7 fL (81.0-99.0); MONOCYTES % 14.7 % (2.0-8.0); NEUTROPHILS % 68.5 % (40.0-76.0); PLATELET 325 x1000/uL (130-400); RED BLOOD CELL COUNT 4.35 mill/uL (4.2-5.4); RED CELL DISTRIBUTION WIDTH 18.1 % (11.6-14.6)
[2023-04-29] MEDS: BLOOD SUGAR DIAGNOSTIC STRIP TEST SCH ×4 (06:12→21:00)
[2023-04-29] MEDS: INSULIN LISPRO 100 UNITS/ML SUBCUT SCH ×4 (06:12→21:00)
[2023-04-29] MEDS: VANCOMYCIN 1000MG/20ML ORAL SOLN PO SCH ×3 (06:12→21:55)
[2023-04-29 08:00] VITALS: BP 129/90; PULSE 63; RESP 20; TEMP 97.8
[2023-04-29] MEDS: POTASSIUM CHLORIDE 10MEQ TABLET SR PO SCH (08:32)
[2023-04-29] MEDS: LACTOBACILLUS GG CAPSULE PO SCH (08:32)
[2023-04-29] MEDS: CITRIC ACID/SODIUM CITRATE SOLN 15ML UDC PO SCH ×3 (08:33→17:00)
[2023-04-29] MEDS: AMLODIPINE 2.5MG TABLET PO SCH (08:33)
[2023-04-29] MEDS: SODIUM BICARBONATE 100 MEQ in DEXTROSE 5% WATER 1,000 ML IV SCH (08:37)
[2023-04-29] MEDS: INSULIN GLARGINE 100 UNITS/ML SUBCUT SCH (09:04)
[2023-04-29 12:00] VITALS: BP 131/99; PULSE 65; RESP 18; TEMP 98.1
[2023-04-29 16:00] VITALS: BP 149/57; PULSE 70; RESP 20; TEMP 99.3
[2023-04-29] MEDS: ENOXAPARIN 30MG/0.3ML SYR SUBCUT SCH (18:13)
[2023-04-29 20:00] VITALS: BP 127/65; PULSE 81; RESP 20; TEMP 97.8
[2023-04-29] MEDS: LATANOPROST 0.005% OPHTH DROPS 2.5ML BOTHEYE SCH (22:18)
[2023-04-29] MEDS: ACETAMINOPHEN 325MG TABLET PO PRN (22:20)
[2023-04-30] VITALS: BP 105/55; PULSE 76; RESP 20; TEMP 98.1
[2023-04-30 04:00] VITALS: BP 131/62; PULSE 51; RESP 18; TEMP 98.7
[2023-04-30 04:07] LABS: OVA & PARASITE EXAM Final report (.)
[2023-04-30] MEDS: VANCOMYCIN 1000MG/20ML ORAL SOLN PO SCH ×4 (04:46→17:16)
[2023-04-30] MEDS: SODIUM BICARBONATE 100 MEQ in DEXTROSE 5% WATER 1,000 ML IV SCH ×2 (04:47→20:00)
[2023-04-30] MEDS: BLOOD SUGAR DIAGNOSTIC STRIP TEST SCH ×4 (07:29→21:00)
[2023-04-30] MEDS: INSULIN LISPRO 100 UNITS/ML SUBCUT SCH ×4 (07:50→21:00)
[2023-04-30 08:00] VITALS: BP 113/62; PULSE 57; RESP 18; TEMP 97.6
[2023-04-30] MEDS: LACTOBACILLUS GG CAPSULE PO SCH (08:39)
[2023-04-30] MEDS: POTASSIUM CHLORIDE 10MEQ TABLET SR PO SCH (08:44)
[2023-04-30] MEDS: AMLODIPINE 2.5MG TABLET PO SCH (08:50)
[2023-04-30] MEDS: CITRIC ACID/SODIUM CITRATE SOLN 15ML UDC PO SCH ×3 (09:00→17:17)
[2023-04-30] MEDS: INSULIN GLARGINE 100 UNITS/ML SUBCUT SCH (09:57)
[2023-04-30] MEDS: FUROSEMIDE 40MG TABLET PO SCH ×2 (10:10→17:16)
[2023-04-30 12:00] VITALS: BP 78/55; PULSE 108; RESP 20; TEMP 97.2
[2023-04-30 16:00] VITALS: BP 123/76; PULSE 64; RESP 21; TEMP 97.9
[2023-04-30] MEDS: ENOXAPARIN 30MG/0.3ML SYR SUBCUT SCH (18:05)
[2023-04-30 20:00] VITALS: BP 137/61; PULSE 41; RESP 19; TEMP 97.5
[2023-04-30] MEDS: LATANOPROST 0.005% OPHTH DROPS 2.5ML BOTHEYE SCH (21:00)
[2023-05-01] VITALS: BP 162/66; PULSE 41; RESP 20; TEMP 97.5
[2023-05-01 04:00] VITALS: BP 153/61; PULSE 42; RESP 20; TEMP 97.5
[2023-05-01] MEDS: VANCOMYCIN 1000MG/20ML ORAL SOLN PO SCH ×4 (06:00→18:00)
[2023-05-01] MEDS: INSULIN LISPRO 100 UNITS/ML SUBCUT SCH ×4 (07:42→21:25)
[2023-05-01] MEDS: BLOOD SUGAR DIAGNOSTIC STRIP TEST SCH ×4 (07:42→21:02)
[2023-05-01] MEDS: FUROSEMIDE 40MG TABLET PO SCH ×2 (07:43→20:59)
[2023-05-01 08:00] VITALS: BP 142/68; PULSE 41; RESP 18; TEMP 98.1
[2023-05-01] MEDS: CITRIC ACID/SODIUM CITRATE SOLN 15ML UDC PO SCH ×3 (10:32→17:14)
[2023-05-01] MEDS: AMLODIPINE 2.5MG TABLET PO SCH (10:33)
[2023-05-01] MEDS: POTASSIUM CHLORIDE 10MEQ TABLET SR PO SCH (10:33)
[2023-05-01] MEDS: LACTOBACILLUS GG CAPSULE PO SCH (10:33)
[2023-05-01] MEDS: INSULIN GLARGINE 100 UNITS/ML SUBCUT SCH (11:11)
[2023-05-01 12:00] VITALS: BP 135/64; PULSE 79; RESP 22; TEMP 98.1
[2023-05-01 16:00] VITALS: BP 136/70; PULSE 75; RESP 18; TEMP 98
[2023-05-01] MEDS: ENOXAPARIN 30MG/0.3ML SYR SUBCUT SCH (18:01)
[2023-05-01 20:00] VITALS: BP 125/66; PULSE 70; RESP 18; TEMP 99.1
[2023-05-01] MEDS: LATANOPROST 0.005% OPHTH DROPS 2.5ML BOTHEYE SCH (22:00)
[2023-05-02] MEDS: VANCOMYCIN 1000MG/20ML ORAL SOLN PO SCH ×4 (00:54→23:22)
[2023-05-02] MEDS: BLOOD SUGAR DIAGNOSTIC STRIP TEST SCH ×4 (07:20→21:00)
[2023-05-02 07:50] LABS: BASOPHILS % 0.8 % (0.0-2.0); EOSINOPHILS % 1.4 % (0.0-5.0); HEMATOCRIT. 34.7 % (36.0-48.0); LYMPHOCYTES % 11.4 % (20.0-50.0); MEAN CORPUSCULAR HEMOGLOBIN 25.3 pg (28.0-32.0); MEAN CORPUSCULAR VOLUME 79.6 fL (81.0-99.0); MEAN PLATELET VOLUME 8.6 fl (7.4-10.4); MONOCYTES % 10.5 % (2.0-8.0); NEUTROPHILS % 75.9 % (40.0-76.0); PLATELET 340 x1000/uL (130-400); RED BLOOD CELL COUNT 4.36 mill/uL (4.2-5.4); RED CELL DISTRIBUTION WIDTH 18.2 % (11.6-14.6)
[2023-05-02] MEDS: INSULIN LISPRO 100 UNITS/ML SUBCUT SCH ×4 (07:50→21:00)
[2023-05-02] MEDS ORDERED: POTASSIUM CHLORIDE 20MEQ TABLET SR PO NR (09:30)
[2023-05-02] MEDS: LACTOBACILLUS GG CAPSULE PO SCH (10:10)
[2023-05-02] MEDS: FUROSEMIDE 40MG TABLET PO SCH ×2 (10:10→23:22)
[2023-05-02] MEDS: CITRIC ACID/SODIUM CITRATE SOLN 15ML UDC PO SCH ×3 (10:10→17:00)
[2023-05-02] MEDS: AMLODIPINE 2.5MG TABLET PO SCH (10:11)
[2023-05-02] MEDS: POTASSIUM CHLORIDE 10MEQ TABLET SR PO SCH (10:11)
[2023-05-02] MEDS: INSULIN GLARGINE 100 UNITS/ML SUBCUT SCH (10:34)
[2023-05-02] MEDS: POTASSIUM CHLORIDE 20MEQ TABLET SR PO SCH (17:00)
[2023-05-02] MEDS: ACETAMINOPHEN 325MG TABLET PO PRN (17:02)
[2023-05-02 20:00] VITALS: BP 130/63; PULSE 96; RESP 18; TEMP 97.1
[2023-05-02] MEDS: ENOXAPARIN 30MG/0.3ML SYR SUBCUT SCH (23:20)
[2023-05-02] MEDS: LATANOPROST 0.005% OPHTH DROPS 2.5ML BOTHEYE SCH (23:22)
[2023-05-03] MEDS: VANCOMYCIN 1000MG/20ML ORAL SOLN PO SCH ×5 (00:58→23:24)
[2023-05-03] MEDS: BLOOD SUGAR DIAGNOSTIC STRIP TEST SCH ×4 (07:20→21:00)
[2023-05-03] MEDS: INSULIN LISPRO 100 UNITS/ML SUBCUT SCH ×4 (07:50→21:58)
[2023-05-03 08:00] VITALS: BP 104/71; PULSE 76; RESP 20; TEMP 97.5
[2023-05-03 08:04] LABS: BASOPHILS % 0.9 % (0.0-2.0); HEMATOCRIT. 34.8 % (36.0-48.0); HEMOGLOBIN. 11.5 g/dL (12.0-16.0); LYMPHOCYTES % 10.8 % (20.0-50.0); MEAN CORPUSCULAR HEMOGLOBIN 25.9 pg (28.0-32.0); MEAN CORPUSCULAR VOLUME 78.9 fL (81.0-99.0); MEAN PLATELET VOLUME 8.8 fl (7.4-10.4); MONOCYTES % 11.2 % (2.0-8.0); NEUTROPHILS % 76.1 % (40.0-76.0); PLATELET 348 x1000/uL (130-400); RED BLOOD CELL COUNT 4.42 mill/uL (4.2-5.4); RED CELL DISTRIBUTION WIDTH 18.1 % (11.6-14.6)
[2023-05-03] MEDS: POTASSIUM CHLORIDE 20MEQ TABLET SR PO SCH ×2 (08:49→17:42)
[2023-05-03] MEDS: LACTOBACILLUS GG CAPSULE PO SCH (08:49)
[2023-05-03] MEDS: FUROSEMIDE 40MG TABLET PO SCH ×2 (08:50→21:52)
[2023-05-03] MEDS: AMLODIPINE 2.5MG TABLET PO SCH (08:50)
[2023-05-03] MEDS: CITRIC ACID/SODIUM CITRATE SOLN 15ML UDC PO SCH ×3 (08:50→17:40)
[2023-05-03] MEDS: INSULIN GLARGINE 100 UNITS/ML SUBCUT SCH (10:00)
[2023-05-03 12:00] VITALS: BP 149/58; PULSE 65; RESP 19; TEMP 97.5
[2023-05-03 16:00] VITALS: BP 126/62; PULSE 95; RESP 19; TEMP 98.1
[2023-05-03] MEDS: ENOXAPARIN 30MG/0.3ML SYR SUBCUT SCH (17:42)
[2023-05-03] MEDS: LATANOPROST 0.005% OPHTH DROPS 2.5ML BOTHEYE SCH (21:52)
[2023-05-04] VITALS: BP_SYST 138; BP_SYST 143; BP_SYST 90; BP_DIAS 65; BP_DIAS 67; BP_DIAS 76; PULSE 100; PULSE 60; RESP 17; RESP 18; RESP 20; TEMP 95.2; TEMP 98.1; TEMP 98.4
[2023-05-04] MEDS: VANCOMYCIN 1000MG/20ML ORAL SOLN PO SCH ×3 (05:52→17:27)
[2023-05-04] MEDS: BLOOD SUGAR DIAGNOSTIC STRIP TEST SCH ×4 (06:38→21:34)
[2023-05-04] MEDS: INSULIN LISPRO 100 UNITS/ML SUBCUT SCH ×4 (07:50→21:00)
[2023-05-04 08:00] VITALS: BP 143/68; PULSE 80; RESP 18; TEMP 97.4
[2023-05-04] MEDS: FUROSEMIDE 40MG TABLET PO SCH ×2 (09:33→21:33)
[2023-05-04] MEDS: POTASSIUM CHLORIDE 20MEQ TABLET SR PO SCH ×2 (09:33→17:27)
[2023-05-04] MEDS: CITRIC ACID/SODIUM CITRATE SOLN 15ML UDC PO SCH ×3 (09:33→17:26)
[2023-05-04] MEDS: LACTOBACILLUS GG CAPSULE PO SCH (09:33)
[2023-05-04] MEDS: AMLODIPINE 2.5MG TABLET PO SCH (09:34)
[2023-05-04] MEDS: ACETAMINOPHEN 325MG TABLET PO PRN (10:00)
[2023-05-04] MEDS: INSULIN GLARGINE 100 UNITS/ML SUBCUT SCH (10:00)
[2023-05-04 12:00] VITALS: BP 136/62; PULSE 71; RESP 18; TEMP 97.9
[2023-05-04 16:00] VITALS: BP 137/67; PULSE 75; RESP 19; TEMP 97.5
[2023-05-04] MEDS: ENOXAPARIN 30MG/0.3ML SYR SUBCUT SCH (17:27)
[2023-05-04] MEDS: LATANOPROST 0.005% OPHTH DROPS 2.5ML BOTHEYE SCH (21:34)
[2023-05-05] VITALS (7 sets, daily range): BP systolic 127–161; BP diastolic 54–88; PULSE 68–96; RESP 16–20; TEMP 96.3–98.1
[2023-05-05] MEDS: VANCOMYCIN 1000MG/20ML ORAL SOLN PO SCH ×4 (00:04→18:00)
[2023-05-05] MEDS: BLOOD SUGAR DIAGNOSTIC STRIP TEST SCH ×4 (07:35→21:49)
[2023-05-05 08:04] LABS: EOSINOPHILS % 1.3 % (0.0-5.0); HEMATOCRIT. 34.9 % (36.0-48.0); HEMOGLOBIN. 11.5 g/dL (12.0-16.0); MEAN CORPUSCULAR HEMOGLOBIN 25.9 pg (28.0-32.0); MEAN CORPUSCULAR VOLUME 78.6 fL (81.0-99.0); MEAN PLATELET VOLUME 9.2 fl (7.4-10.4); MONOCYTES % 13.7 % (2.0-8.0); PLATELET 334 x1000/uL (130-400); RED BLOOD CELL COUNT 4.44 mill/uL (4.2-5.4); RED CELL DISTRIBUTION WIDTH 19.1 % (11.6-14.6)
[2023-05-05] MEDS: AMLODIPINE 2.5MG TABLET PO SCH (08:56)
[2023-05-05] MEDS: LACTOBACILLUS GG CAPSULE PO SCH (08:56)
[2023-05-05] MEDS: FUROSEMIDE 40MG TABLET PO SCH ×2 (08:57→21:35)
[2023-05-05] MEDS: POTASSIUM CHLORIDE 20MEQ TABLET SR PO SCH ×2 (08:57→18:39)
[2023-05-05] MEDS: CITRIC ACID/SODIUM CITRATE SOLN 15ML UDC PO SCH ×3 (09:00→17:00)
[2023-05-05] MEDS: INSULIN LISPRO 100 UNITS/ML SUBCUT SCH ×4 (09:15→21:46)
[2023-05-05] MEDS: INSULIN GLARGINE 100 UNITS/ML SUBCUT SCH (11:04)
[2023-05-05] MEDS: ENOXAPARIN 30MG/0.3ML SYR SUBCUT SCH (18:40)
[2023-05-05] MEDS: LATANOPROST 0.005% OPHTH DROPS 2.5ML BOTHEYE SCH (21:35)
[2023-05-06] VITALS: BP 146/72; PULSE 78; RESP 16; TEMP 97.7
[2023-05-06] MEDS: VANCOMYCIN 1000MG/20ML ORAL SOLN PO SCH ×4 (00:57→17:50)
[2023-05-06] MEDS: BLOOD SUGAR DIAGNOSTIC STRIP TEST SCH ×4 (06:20→21:50)
[2023-05-06] MEDS: INSULIN LISPRO 100 UNITS/ML SUBCUT SCH ×4 (07:50→21:49)
[2023-05-06 08:00] VITALS: BP 159/80; PULSE 78; RESP 18; TEMP 98.2
[2023-05-06] MEDS: CITRIC ACID/SODIUM CITRATE SOLN 15ML UDC PO SCH ×3 (09:38→17:37)
[2023-05-06] MEDS: AMLODIPINE 2.5MG TABLET PO SCH (09:39)
[2023-05-06] MEDS: LACTOBACILLUS GG CAPSULE PO SCH (09:39)
[2023-05-06] MEDS: FUROSEMIDE 40MG TABLET PO SCH ×2 (09:39→21:28)
[2023-05-06] MEDS: POTASSIUM CHLORIDE 20MEQ TABLET SR PO SCH ×2 (09:39→17:38)
[2023-05-06] MEDS: INSULIN GLARGINE 100 UNITS/ML SUBCUT SCH (10:00)
[2023-05-06 12:00] VITALS: BP 144/84; PULSE 85; RESP 17; TEMP 97
[2023-05-06] MEDS: NYSTATIN 100,000 UNITS/GM CREAM 15GM TOP SCH ×2 (12:00→17:00)
[2023-05-06] MEDS: MENTHOL/LANOLIN/CALAMINE/ZN OX OINT 71GM TOP SCH ×2 (12:00→17:00)
[2023-05-06 16:00] VITALS: BP 132/66; PULSE 80; RESP 20; TEMP 97.2
[2023-05-06] MEDS: ENOXAPARIN 30MG/0.3ML SYR SUBCUT SCH (17:43)
[2023-05-06] MEDS: LATANOPROST 0.005% OPHTH DROPS 2.5ML BOTHEYE SCH (21:28)
[2023-05-06 22:00] VITALS: BP 132/66; PULSE 75; RESP 19; TEMP 97.7
[2023-05-07] VITALS: BP 146/67; PULSE 51; RESP 16; TEMP 98
[2023-05-07 04:00] VITALS: BP 156/78; PULSE 65; RESP 15; TEMP 97.7
[2023-05-07] MEDS: BLOOD SUGAR DIAGNOSTIC STRIP TEST SCH ×4 (06:43→21:09)
[2023-05-07] MEDS: INSULIN LISPRO 100 UNITS/ML SUBCUT SCH ×4 (07:50→21:53)
[2023-05-07 08:00] VITALS: BP 98/68; PULSE 64; RESP 19; TEMP 98.8
[2023-05-07 08:04] LABS: HEMATOCRIT. 34.1 % (36.0-48.0); HEMOGLOBIN. 11.2 g/dL (12.0-16.0); MEAN CORPUSCULAR HEMOGLOBIN 25.8 pg (28.0-32.0); MEAN CORPUSCULAR VOLUME 78.6 fL (81.0-99.0); MEAN PLATELET VOLUME 9.3 fl (7.4-10.4); PLATELET 300 x1000/uL (130-400); RED BLOOD CELL COUNT 4.34 mill/uL (4.2-5.4); RED CELL DISTRIBUTION WIDTH 19.9 % (11.6-14.6)
[2023-05-07] MEDS: NYSTATIN 100,000 UNITS/GM CREAM 15GM TOP SCH ×2 (09:00→17:00)
[2023-05-07] MEDS: MENTHOL/LANOLIN/CALAMINE/ZN OX OINT 71GM TOP SCH ×2 (09:00→17:00)
[2023-05-07] MEDS: CITRIC ACID/SODIUM CITRATE SOLN 15ML UDC PO SCH ×3 (09:23→17:26)
[2023-05-07] MEDS: LACTOBACILLUS GG CAPSULE PO SCH (09:23)
[2023-05-07] MEDS: AMLODIPINE 2.5MG TABLET PO SCH (09:34)
[2023-05-07] MEDS: POTASSIUM CHLORIDE 20MEQ TABLET SR PO SCH ×2 (09:35→17:26)
[2023-05-07] MEDS: FUROSEMIDE 40MG TABLET PO SCH ×2 (09:35→21:09)
[2023-05-07] MEDS: INSULIN GLARGINE 100 UNITS/ML SUBCUT SCH (10:00)
[2023-05-07 15:16] LABS: PLATELET ESTIMATE NORMAL
[2023-05-07] MEDS: ENOXAPARIN 30MG/0.3ML SYR SUBCUT SCH (18:00)
[2023-05-07 20:00] VITALS: BP 127/79; PULSE 91; RESP 17; TEMP 99.3
[2023-05-07 20:15] VITALS: BP 142/66; PULSE 60; RESP 19; TEMP 98.2
[2023-05-07] MEDS: LATANOPROST 0.005% OPHTH DROPS 2.5ML BOTHEYE SCH (21:04)
[2023-05-08] VITALS: BP 147/61; PULSE 66; RESP 17; TEMP 97.7
[2023-05-08] MEDS: BLOOD SUGAR DIAGNOSTIC STRIP TEST SCH ×4 (06:47→21:00)
[2023-05-08] MEDS: INSULIN LISPRO 100 UNITS/ML SUBCUT SCH ×4 (07:50→21:00)
[2023-05-08 08:00] VITALS: BP 166/84; PULSE 72; RESP 21; TEMP 97.9
[2023-05-08] MEDS: LACTOBACILLUS GG CAPSULE PO SCH (09:01)
[2023-05-08] MEDS: POTASSIUM CHLORIDE 20MEQ TABLET SR PO SCH ×2 (09:02→18:52)
[2023-05-08] MEDS: FUROSEMIDE 40MG TABLET PO SCH ×2 (09:02→21:00)
[2023-05-08] MEDS: CITRIC ACID/SODIUM CITRATE SOLN 15ML UDC PO SCH ×3 (09:03→18:52)
[2023-05-08] MEDS: AMLODIPINE 2.5MG TABLET PO SCH (09:03)
[2023-05-08] MEDS: INSULIN GLARGINE 100 UNITS/ML SUBCUT SCH (09:18)
[2023-05-08 12:00] VITALS: BP 132/51; PULSE 76; RESP 19; TEMP 98.2
[2023-05-08 13:37] LABS: EOSINOPHILS % 1.4 % (0.0-5.0); HEMATOCRIT. 35.4 % (36.0-48.0); HEMOGLOBIN. 11.6 g/dL (12.0-16.0); MEAN CORPUSCULAR HEMOGLOBIN 25.9 pg (28.0-32.0); MEAN CORPUSCULAR VOLUME 78.9 fL (81.0-99.0); MEAN PLATELET VOLUME 8.9 fl (7.4-10.4); MONOCYTES % 13.8 % (2.0-8.0); NEUTROPHILS % 73.8 % (40.0-76.0); PLATELET 280 x1000/uL (130-400); RED BLOOD CELL COUNT 4.48 mill/uL (4.2-5.4); RED CELL DISTRIBUTION WIDTH 20.7 % (11.6-14.6)
[2023-05-08 16:00] VITALS: BP 146/76; PULSE 68; RESP 19; TEMP 98.1
[2023-05-08] MEDS: METOLAZONE 2.5MG TABLET PO SCH (18:53)
[2023-05-08] MEDS: ENOXAPARIN 30MG/0.3ML SYR SUBCUT SCH (18:53)
[2023-05-08 20:00] VITALS: BP_SYST 146; BP_SYST 157; BP_DIAS 72; BP_DIAS 80; PULSE 65; PULSE 70; RESP 17; TEMP 96.6; TEMP 97.5
[2023-05-08] MEDS: LATANOPROST 0.005% OPHTH DROPS 2.5ML BOTHEYE SCH (21:00)
[2023-05-09] VITALS: BP 157/80; PULSE 65; RESP 17; TEMP 97.5
[2023-05-09 04:00] VITALS: BP 118/64; PULSE 67; RESP 17; TEMP 97.5
[2023-05-09] MEDS: BLOOD SUGAR DIAGNOSTIC STRIP TEST SCH (07:20)
[2023-05-09] MEDS: INSULIN LISPRO 100 UNITS/ML SUBCUT SCH (07:50)
[2023-05-09 08:00] VITALS: BP_SYST 118; BP_SYST 122; BP_DIAS 64; BP_DIAS 65; PULSE 67; PULSE 75; RESP 20; TEMP 97.5; TEMP 98.1; O2SAT 95
[2023-05-09 08:48] LABS: HEMATOCRIT. 34.9 % (36.0-48.0); HEMOGLOBIN. 11.5 g/dL (12.0-16.0); MEAN CORPUSCULAR HEMOGLOBIN 26.1 pg (28.0-32.0); MEAN CORPUSCULAR VOLUME 79.4 fL (81.0-99.0); MEAN PLATELET VOLUME 9.7 fl (7.4-10.4); PLATELET 276 x1000/uL (130-400); RED BLOOD CELL COUNT 4.39 mill/uL (4.2-5.4); RED CELL DISTRIBUTION WIDTH 20.4 % (11.6-14.6)
[2023-05-09] MEDS: POTASSIUM CHLORIDE 20MEQ TABLET SR PO SCH (09:17)
[2023-05-09] MEDS: AMLODIPINE 2.5MG TABLET PO SCH (09:17)
[2023-05-09] MEDS: FUROSEMIDE 40MG TABLET PO SCH (09:17)
[2023-05-09] MEDS: METOLAZONE 2.5MG TABLET PO SCH (09:17)
[2023-05-09] MEDS: CITRIC ACID/SODIUM CITRATE SOLN 15ML UDC PO SCH (09:17)
[2023-05-09] MEDS: INSULIN GLARGINE 100 UNITS/ML SUBCUT SCH (09:22)
[2023-05-09 17:50] LABS: PLATELET ESTIMATE NORMAL
== END 2023-05-09 12:55 | disposition home health service (06) | DRG 871 ==
LOC: ER 15:46 → EDBEDREQSVC 20:49 → EDBEDREQTM 20:49 → 8WST 23:11 → 6EST 04-29 15:55
PROVIDERS: ADMIT Internal Medicine; ATTEND Internal Medicine
DX: A41.9 Sepsis, unspecified organism (principal); N17.0 Acute kidney failure with tubular necrosis; A04.72 Enterocolitis due to Clostridium difficile, not specified as recurrent; E87.20 Acidosis, unspecified; E87.1 Hypo-osmolality and hyponatremia; K56.7 Ileus, unspecified; I48.20 Chronic atrial fibrillation, unspecified; I13.0 Hypertensive heart and chronic kidney disease with heart failure and stage 1 through stage 4 chronic kidney disease, or unspecified chronic kidney disease; I50.32 Chronic diastolic (congestive) heart failure; N39.0 Urinary tract infection, site not specified; K57.32 Diverticulitis of large intestine without perforation or abscess without bleeding; E87.6 Hypokalemia; I49.5 Sick sinus syndrome; E11.22 Type 2 diabetes mellitus with diabetic chronic kidney disease; I27.21 Secondary pulmonary arterial hypertension; L89.159 Pressure ulcer of sacral region, unspecified stage; N81.4 Uterovaginal prolapse, unspecified; E80.6 Other disorders of bilirubin metabolism; T50.2X5A Adverse effect of carbonic-anhydrase inhibitors, benzothiadiazides and other diuretics, initial encounter; E11.21 Type 2 diabetes mellitus with diabetic nephropathy; F41.9 Anxiety disorder, unspecified; E11.42 Type 2 diabetes mellitus with diabetic polyneuropathy; D64.9 Anemia, unspecified; E86.9 Volume depletion, unspecified; N18.9 Chronic kidney disease, unspecified; Z95.0 Presence of cardiac pacemaker; Z88.0 Allergy status to penicillin; Z79.4 Long term (current) use of insulin; Z79.84 Long term (current) use of oral hypoglycemic drugs; Z79.899 Other long term (current) drug therapy; Z87.891 Personal history of nicotine dependence; Y92.89 Other specified places as the place of occurrence of the external cause; Z79.01 Long term (current) use of anticoagulants; Z82.49 Family history of ischemic heart disease and other diseases of the circulatory system; Z83.3 Family history of diabetes mellitus
CPT/HCPCS: 36415; 74018; 74176; 76700; 80048; 80053; 80076; 81003; 82962; 82977; 83036; 83735; 83880; 84100; 84145; 84484; 85025; 87015; 87045; 87177; 87209; 87427; 87449; 87493; 89055; 93005; 97110; 97116; 97161; 97166; 97530; 97535; 99285; A6261; J0692; J1650; J1815; J2185; J2270; J3370; J3480; J3490; J7030; J7060; J7070; Q9963